=== PATIENT | female | born 1935 | race Caucasian/White ===

== ENCOUNTER 2017-12-22 12:46 | Inpatient (IN) ==
--- NOTE | 2017-12-22 14:16 | ED ---
HPI General Chief Complaint: Psychiatric Symptoms Stated Complaint: Psych Eval Time Seen by Provider: 12/23/17 10:10 History of Present Illness HPI Narrative: The patient was seen and examined in the presence of the nurse. This patient is brought in under police Becerril act. She was acting aggressive and confused. At this time she is calm and cooperative and denies any physical complaint. Denies fever or injury. Severity is mild at this time. No alleviating factors. No exacerbating factors. She denies alcohol or drugs or overdose. Duration 1 day Related Data Home Medications Medication Instructions Recorded Confirmed conjugated estrogens [Premarin] 1.25 mg PO DAILY 12/22/17 12/22/17 diazepam 5 mg PO DAILY 12/22/17 12/22/17 Allergies Allergy/AdvReac Type Severity Reaction Status Date / Time No Known Allergies Allergy Unverified 12/22/17 13:46 Review of Systems ROS: all other systems reviewed are negative [facility] Medical History Medical History H/O: hysterectomy (Acute) High cholesterol (Acute) Hypertension (Acute) Skin cancer (Acute) Surgical History Surgical History H/O breast biopsy (Acute) Social History Social History Substance History: No History of Abuse Second Hand Smoke Exposure: No Smoking Status: Never smoker How Often Do You Have a Drink Containing Alcohol: Monthly or less Recent Travel in [facility] within the Last 8 Weeks: No Recent Out of Country Travel within the Last 8 Weeks: No Immunization History Tetanus Immunization: <5 Years Hx Influenza Vaccine This Season: No Exam Narrative Exam Narrative: GENERAL: Well-nourished, well-developed patient in no apparent distress. SKIN: Focused skin assessment reveals no rash and nodules. Skin is Warm and dry. HEAD: Atraumatic. Normocephalic. EYES: Pupils equal and round. No scleral icterus. No injection or drainage. ENT: No nasal bleeding or discharge. Mucous membranes pink and moist. NECK: Trachea midline. No JVD. No meningeal signs CARDIOVASCULAR: Regular rate and rhythm. No murmur appreciated. RESPIRATORY: No accessory muscle use. Clear to auscultation. Breath sounds equal bilaterally. GASTROINTESTINAL: Abdomen soft, non-tender, nondistended. Hepatic and splenic margins not palpable. MUSCULOSKELETAL: No obvious deformities. No clubbing. No cyanosis. No edema. NEUROLOGICAL: Awake and alert. No obvious cranial nerve deficits. Motor grossly within normal limits. Normal speech. PSYCHIATRIC: Appropriate mood and affect; insight and judgment questionable Course Initial Documented Vital Signs Temperature 98.0 F 12/22/17 13:27 Pulse Rate 126 H 12/22/17 13:27 Respiratory Rate 20 12/22/17 13:27 Blood Pressure 176/97 H 12/22/17 13:27 Pulse Oximetry 93 L 12/22/17 13:27 Last Documented Vital Signs Temperature 97.6 F 12/26/17 05:33 Pulse Rate 78 12/26/17 05:33 Respiratory Rate 16 12/26/17 05:33 Blood Pressure 114/71 12/26/17 05:33 Pulse Oximetry 95 12/26/17 05:33 Medical Decision Making MDM Narrative Medical decision making narrative: Blood and urine studies. Psych screen has been ordered as she is here under Becerril act. Patient has significant tachycardia. EKG shows sinus rhythm at 116. [place] interval is [address] elevations. Patient has no urinary symptoms. She feels perfectly fine on recheck. Her heart rate is 100. She is a bit hypertensive. Has minor renal insufficiency. She is awaiting psychiatric evaluation but no indication for emergent medical care. Medical Screen Exam Complete: Yes Emergency Medical Condition: Yes Differential Diagnosis Differential Diagnosis: Psychiatric disease, electrolyte abnormality, substance- induced mood disorder, dementia Medical Records Medical records reviewed: Yes I reviewed the patient's medical records. Patient was seen in 2012 by oncology Lab Data Lab results reviewed: Yes I reviewed the patient's lab results. Result diagrams: 12/25/17 08:03 12/25/17 08:03 Lab Results 12/22/17 12/22/17 12/22/17 Range/Units 13:15 13:15 14:10 WBC 13.1 H (4.0-11.0) th/mm3 RBC 5.04 (4.00-5.30) mil/mm3 Hgb 14.8 (11.6-15.3) gm/dL Hct 45.1 (35.0-46.0) % MCV 89.5 (80.0-100.0) fL MCH 29.4 (27.0-34.0) pg MCHC 32.9 (32.0-36.0) % RDW 13.8 (11.6-17.2) % Plt Count 265 (150-450) th/mm3 MPV 9.5 (7.0-11.0) fL Neut % (Auto) 73.8 H (16.0-70.0) % Lymph % (Auto) 16.0 (9.0-44.0) % [place] % (Auto) 9.4 H (0.0-8.0) % Eos % (Auto) 0.1 (0.0-4.0) % Baso % (Auto) 0.7 (0.0-2.0) % Neut # (Auto) 9.7 H (1.8-7.7) th/mm3 Lymph # (Auto) 2.1 (1.0-4.8) th/mm3 [place] # (Auto) 1.2 H (0.0-0.9) th/mm3 Eos # (Auto) 0.0 (0.0-0.4) th/mm3 Baso # (Auto) 0.1 (0.0-0.2) th/mm3 WBC Differential . Differential Comment Auto diff final Sodium 144 (136-145) meq/L Potassium 3.5 (3.5-5.1) meq/L Chloride 109 H (98-107) meq/L Carbon Dioxide 23.9 (21.0-32.0) meq/L Anion Gap 11 (5-15) meq/L BUN 15 (7-18) mg/dL Creatinine 1.53 H (0.50-1.00) mg/dL Estimated GFR 32 L (>89) mL/min Random Glucose 148 H (74-106) mg/dL Hemoglobin A1c (4.3-6.0) % Calcium 9.3 (8.5-10.1) mg/dL Total Bilirubin 0.8 (0.2-1.0) mg/dL AST 25 (15-37) U/L ALT 23 (10-53) U/L Alkaline Phosphatase 99 (45-117) U/L Ammonia (11-32) mcmol/L Total Protein 8.6 H (6.4-8.2) g/dL Albumin 4.1 (3.4-5.0) g/dL Triglycerides (42-150) mg/dL Cholesterol (120-200) mg/dL LDL Cholesterol, Calc (0-99) mg/dL HDL Cholesterol (40.0-60.0) mg/dL Cholesterol/HDL Ratio Ratio Vitamin B12 (193-986) pg/mL TSH 2.680 (0.358-3.740) uIU/mL Free T4 (0.76-1.46) ng/dL Urine Color (Yellw/Straw) Urine Clarity (Clear) Urine pH (5.0-8.5) Ur Specific [place] (1.002-1.035) Urine Protein (Neg-Trace) mg/dL Urine Glucose (UA) (Negative) mg/dL Urine Ketones (Negative) mg/dL Urine Occult Blood (Negative) Urine Nitrate (Negative) Urine Bilirubin (Negative) Urine Urobilinogen (Less than 2) mg/dL Ur Leukocyte Esterase (Negative) Urine RBC (0-3) /hpf Urine WBC (0-5) /hpf Ur Squamous Epith Cells (0-5) /hpf Uric Acid Crystals (None) /hpf Urine Bacteria (None) /hpf Urine Mucus (Occasional) /lpf Micro UA Comment Ur Microscopic Review Urine Culture Comments Urine Opiates Screen Neg (Neg) Ur Barbiturates Screen Neg (Neg) Ur Amphetamines Screen Neg (Neg) U Benzodiazepines Scrn Pos H (Neg) Urine Cocaine Screen Neg (Neg) U Cannabinoids Screen Neg (Neg) Serum Alcohol Less than 3 (0-5) mg/dL HIV 1&2 Ab/P24 Ag 4thGn (Nonreactive) 12/23/17 12/24/17 12/24/17 Range/Units 14:47 06:10 06:10 WBC (4.0-11.0) th/mm3 RBC (4.00-5.30) mil/mm3 Hgb (11.6-15.3) gm/dL Hct (35.0-46.0) % MCV (80.0-100.0) fL MCH (27.0-34.0) pg MCHC (32.0-36.0) % RDW (11.6-17.2) % Plt Count (150-450) th/mm3 MPV (7.0-11.0) fL Neut % (Auto) (16.0-70.0) % Lymph % (Auto) (9.0-44.0) % [place] % (Auto) (0.0-8.0) % Eos % (Auto) (0.0-4.0) % Baso % (Auto) (0.0-2.0) % Neut # (Auto) (1.8-7.7) th/mm3 Lymph # (Auto) (1.0-4.8) th/mm3 [place] # (Auto) (0.0-0.9) th/mm3 Eos # (Auto) (0.0-0.4) th/mm3 Baso # (Auto) (0.0-0.2) th/mm3 WBC Differential Differential Comment Sodium 142 (136-145) meq/L Potassium 3.5 (3.5-5.1) meq/L Chloride 108 H (98-107) meq/L Carbon Dioxide 25.3 (21.0-32.0) meq/L Anion Gap 9 (5-15) meq/L BUN 18 (7-18) mg/dL Creatinine 0.78 (0.50-1.00) mg/dL Estimated GFR 71 L (>89) mL/min Random Glucose 113 H (74-106) mg/dL Hemoglobin A1c 6.0 (4.3-6.0) % Calcium 8.6 (8.5-10.1) mg/dL Total Bilirubin (0.2-1.0) mg/dL AST (15-37) U/L ALT (10-53) U/L Alkaline Phosphatase (45-117) U/L Ammonia (11-32) mcmol/L Total Protein (6.4-8.2) g/dL Albumin (3.4-5.0) g/dL Triglycerides 131 (42-150) mg/dL Cholesterol 140 (120-200) mg/dL LDL Cholesterol, Calc 56 (0-99) mg/dL HDL Cholesterol 57.7 (40.0-60.0) mg/dL Cholesterol/HDL Ratio 2.42 Ratio Vitamin B12 194 (193-986) pg/mL TSH 3.450 (0.358-3.740) uIU/mL Free T4 1.15 (0.76-1.46) ng/dL Urine Color Mandy (Yellw/Straw) Urine Clarity Cloudy H (Clear) Urine pH 5.0 (5.0-8.5) Ur Specific [place] 1.025 (1.002-1.035) Urine Protein 30 H (Neg-Trace) mg/dL Urine Glucose (UA) Negative (Negative) mg/dL Urine Ketones Trace H (Negative) mg/dL Urine Occult Blood Small H (Negative) Urine Nitrate Negative (Negative) Urine Bilirubin Negative (Negative) Urine Urobilinogen 2.0 H (Less than 2) mg/dL Ur Leukocyte Esterase Negative (Negative) Urine RBC 2 (0-3) /hpf Urine WBC 2 (0-5) /hpf Ur Squamous Epith Cells 7 (0-5) /hpf Uric Acid Crystals Moderate H (None) /hpf Urine Bacteria Many H (None) /hpf Urine Mucus Many H (Occasional) /lpf Micro UA Comment Culture indicated Ur Microscopic Review Not Reportable Urine Culture Comments Culture indicated Urine Opiates Screen (Neg) Ur Barbiturates Screen (Neg) Ur Amphetamines Screen (Neg) U Benzodiazepines Scrn (Neg) Urine Cocaine Screen (Neg) U Cannabinoids Screen (Neg) Serum Alcohol (0-5) mg/dL HIV 1&2 Ab/P24 Ag 4thGn (Nonreactive) 12/25/17 12/25/17 12/26/17 Range/Units 08:03 08:03 07:50 WBC 7.9 (4.0-11.0) th/mm3 RBC 4.58 (4.00-5.30) mil/mm3 Hgb 13.7 (11.6-15.3) gm/dL Hct 40.7 (35.0-46.0) % MCV 88.8 (80.0-100.0) fL MCH 29.8 (27.0-34.0) pg MCHC 33.5 (32.0-36.0) % RDW 13.4 (11.6-17.2) % Plt Count 200 (150-450) th/mm3 MPV 9.6 (7.0-11.0) fL Neut % (Auto) 47.9 (16.0-70.0) % Lymph % (Auto) 39.9 (9.0-44.0) % [place] % (Auto) 8.2 H (0.0-8.0) % Eos % (Auto) 3.1 (0.0-4.0) % Baso % (Auto) 0.9 (0.0-2.0) % Neut # (Auto) 3.8 (1.8-7.7) th/mm3 Lymph # (Auto) 3.2 (1.0-4.8) th/mm3 [place] # (Auto) 0.6 (0.0-0.9) th/mm3 Eos # (Auto) 0.2 (0.0-0.4) th/mm3 Baso # (Auto) 0.1 (0.0-0.2) th/mm3 WBC Differential . Differential Comment Auto diff final Sodium 141 (136-145) meq/L Potassium 3.7 (3.5-5.1) meq/L Chloride 105 (98-107) meq/L Carbon Dioxide 25.4 (21.0-32.0) meq/L Anion Gap 11 (5-15) meq/L BUN 16 (7-18) mg/dL Creatinine 0.74 (0.50-1.00) mg/dL Estimated GFR 75 L (>89) mL/min Random Glucose 103 (74-106) mg/dL Hemoglobin A1c (4.3-6.0) % Calcium 8.7 (8.5-10.1) mg/dL Total Bilirubin (0.2-1.0) mg/dL AST (15-37) U/L ALT (10-53) U/L Alkaline Phosphatase (45-117) U/L Ammonia 12 (11-32) mcmol/L Total Protein (6.4-8.2) g/dL Albumin (3.4-5.0) g/dL Triglycerides (42-150) mg/dL Cholesterol (120-200) mg/dL LDL Cholesterol, Calc (0-99) mg/dL HDL Cholesterol (40.0-60.0) mg/dL Cholesterol/HDL Ratio Ratio Vitamin B12 (193-986) pg/mL TSH (0.358-3.740) uIU/mL Free T4 (0.76-1.46) ng/dL Urine Color (Yellw/Straw) Urine Clarity (Clear) Urine pH (5.0-8.5) Ur Specific [place] (1.002-1.035) Urine Protein (Neg-Trace) mg/dL Urine Glucose (UA) (Negative) mg/dL Urine Ketones (Negative) mg/dL Urine Occult Blood (Negative) Urine Nitrate (Negative) Urine Bilirubin (Negative) Urine Urobilinogen (Less than 2) mg/dL Ur Leukocyte Esterase (Negative) Urine RBC (0-3) /hpf Urine WBC (0-5) /hpf Ur Squamous Epith Cells (0-5) /hpf Uric Acid Crystals (None) /hpf Urine Bacteria (None) /hpf Urine Mucus (Occasional) /lpf Micro UA Comment Ur Microscopic Review Urine Culture Comments Urine Opiates Screen (Neg) Ur Barbiturates Screen (Neg) Ur Amphetamines Screen (Neg) U Benzodiazepines Scrn (Neg) Urine Cocaine Screen (Neg) U Cannabinoids Screen (Neg) Serum Alcohol (0-5) mg/dL HIV 1&2 Ab/P24 Ag 4thGn (Nonreactive) 12/26/17 Range/Units 07:50 WBC (4.0-11.0) th/mm3 RBC (4.00-5.30) mil/mm3 Hgb (11.6-15.3) gm/dL Hct (35.0-46.0) % MCV (80.0-100.0) fL MCH (27.0-34.0) pg MCHC (32.0-36.0) % RDW (11.6-17.2) % Plt Count (150-450) th/mm3 MPV (7.0-11.0) fL Neut % (Auto) (16.0-70.0) % Lymph % (Auto) (9.0-44.0) % [place] % (Auto) (0.0-8.0) % Eos % (Auto) (0.0-4.0) % Baso % (Auto) (0.0-2.0) % Neut # (Auto) (1.8-7.7) th/mm3 Lymph # (Auto) (1.0-4.8) th/mm3 [place] # (Auto) (0.0-0.9) th/mm3 Eos # (Auto) (0.0-0.4) th/mm3 Baso # (Auto) (0.0-0.2) th/mm3 WBC Differential Differential Comment Sodium (136-145) meq/L Potassium (3.5-5.1) meq/L Chloride (98-107) meq/L Carbon Dioxide (21.0-32.0) meq/L Anion Gap (5-15) meq/L BUN (7-18) mg/dL Creatinine (0.50-1.00) mg/dL Estimated GFR (>89) mL/min Random Glucose (74-106) mg/dL Hemoglobin A1c (4.3-6.0) % Calcium (8.5-10.1) mg/dL Total Bilirubin (0.2-1.0) mg/dL AST (15-37) U/L ALT (10-53) U/L Alkaline Phosphatase (45-117) U/L Ammonia (11-32) mcmol/L Total Protein (6.4-8.2) g/dL Albumin (3.4-5.0) g/dL Triglycerides (42-150) mg/dL Cholesterol (120-200) mg/dL LDL Cholesterol, Calc (0-99) mg/dL HDL Cholesterol (40.0-60.0) mg/dL Cholesterol/HDL Ratio Ratio Vitamin B12 (193-986) pg/mL TSH (0.358-3.740) uIU/mL Free T4 (0.76-1.46) ng/dL Urine Color (Yellw/Straw) Urine Clarity (Clear) Urine pH (5.0-8.5) Ur Specific [place] (1.002-1.035) Urine Protein (Neg-Trace) mg/dL Urine Glucose (UA) (Negative) mg/dL Urine Ketones (Negative) mg/dL Urine Occult Blood (Negative) Urine Nitrate (Negative) Urine Bilirubin (Negative) Urine Urobilinogen (Less than 2) mg/dL Ur Leukocyte Esterase (Negative) Urine RBC (0-3) /hpf Urine WBC (0-5) /hpf Ur Squamous Epith Cells (0-5) /hpf Uric Acid Crystals (None) /hpf Urine Bacteria (None) /hpf Urine Mucus (Occasional) /lpf Micro UA Comment Ur Microscopic Review Urine Culture Comments Urine Opiates Screen (Neg) Ur Barbiturates Screen (Neg) Ur Amphetamines Screen (Neg) U Benzodiazepines Scrn (Neg) Urine Cocaine Screen (Neg) U Cannabinoids Screen (Neg) Serum Alcohol (0-5) mg/dL HIV 1&2 Ab/P24 Ag 4thGn Nonreactive (Nonreactive) Imaging Data Radiologist's impression: Head CT 12/25/17 00:00 CONCLUSION: 1. No acute intracranial abnormalities. . Discharge Plan Discharge Disposition Patient Disposition: 30 Still Patient Discharge Details Diagnosis: Major neurocognitive disorder due to Alzheimer's disease, probable, with behavioral disturbance Physicians Team ED Provider: Simon Murphy Primary Care Provider: Primary Care Monse Haynes Attending Provider: Chaiffetz,Barak B. Other Providers: Utilizer,[facility] ; [place] ; Sebastian Chi Discharge Interventions Interventions: ED Discharge Assessment Last Done: 12/23/17 17:13 Vital Signs Last Done: 12/23/17 06:27 Status ED Status: Left Department Discharge Information Discharge Date/Time: 12/23/17 17:13
[2017-12-22 14:41] LABS: Baso # (Auto) 0.1 th/mm3 (0.0-0.2); Baso % (Auto) 0.7 % (0.0-2.0); Eos % (Auto) 0.1 % (0.0-4.0); Hematocrit 45.1 % (35.0-46.0); Hemoglobin 14.8 gm/dL (11.6-15.3); Lymph # (Auto) 2.1 th/mm3 (1.0-4.8); Mean Corpuscular HGB Conc 32.9 % (32.0-36.0); Mean Corpuscular Hemoglobin 29.4 pg (27.0-34.0); Mean Corpuscular Volume 89.5 fL (80.0-100.0); Mean Platelet Volume 9.5 fL (7.0-11.0); Mono # (Auto) 1.2 th/mm3 (0.0-0.9); Mono % (Auto) 9.4 % (0.0-8.0); Neut # (Auto) 9.7 th/mm3 (1.8-7.7); Neut % (Auto) 73.8 % (16.0-70.0); Platelet Count 265 th/mm3 (150-450); Red Blood Count 5.04 mil/mm3 (4.00-5.30); Red Cell Distribution Width 13.8 % (11.6-17.2); White Blood Count 13.1 th/mm3 (4.0-11.0)
[2017-12-22 15:02] LABS: Albumin 4.1 g/dL (3.4-5.0); Anion Gap 11 meq/L (5-15); Aspartate Aminotransferase 25 U/L (15-37); Blood Urea Nitrogen 15 mg/dL (7-18); Calcium 9.3 mg/dL (8.5-10.1); Carbon Dioxide 23.9 meq/L (21.0-32.0); Chloride 109 meq/L (98-107); Glomerular Filtration Rate 32 mL/min (>89); Glucose,Random 148 mg/dL (74-106); Potassium 3.5 meq/L (3.5-5.1); Sodium 144 meq/L (136-145)
[2017-12-22 15:12] LABS: Alanine Aminotransferase 23 U/L (10-53); Alkaline Phosphatase 99 U/L (45-117); Total Protein 8.6 g/dL (6.4-8.2)
[2017-12-22 15:31] LABS: Amphetamine Screen,Urine Neg (Neg); Barbiturate Screen,Urine Neg (Neg); Cannabinoid Screen,Urine Neg (Neg); Cocaine Screen,Urine Neg (Neg)
[2017-12-22 15:44] LABS: Opiate Screen,Urine Neg (Neg)
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
[2017-12-23 16:13] LABS: Bacteria,Urine Many /hpf; Bilirubin,Urine Negative (Negative); Clarity,Urine Cloudy (Clear); Color,Urine Amber (Yellw/Straw); Glucose,Urine (UA) Negative (Negative); Leukocyte Esterase,Urine Negative (Negative); Mucus,Urine Many /lpf (Occasional); Nitrite,Urine Negative (Negative); Specific Gravity,Urine 1.025 (1.002-1.035); Squamous Epithelial Cell,Urine 7 /hpf (0-5); Uric Acid Crystals,Urine Moderate /hpf
--- NOTE | 2017-12-23 21:48 | ECG ---
Date Performed: 12/22/2017 Time Performed: 14:18:46 PTAGE: 82 years EKG: SINUS TACHYCARDIA POSSIBLE ANTERIOR MYOCARDIAL INFARCTION ABNORMAL ECG NO PREVIOUS TRACING DOCTOR: Chris Darden Interpretating Date/Time 12/23/2017 21:47:56
[2017-12-23] MEDS: Senna/Docusate Sodium 8.6/50 MG Tablet PO SCH (22:21)
[2017-12-24 06:52] LABS: Calcium 8.6 mg/dL (8.5-10.1); Carbon Dioxide 25.3 meq/L (21.0-32.0); Potassium 3.5 meq/L (3.5-5.1)
[2017-12-24 07:18] LABS: Chol/HDL Ratio 2.42 Ratio; Free T4 (Free Thyroxine) 1.15 ng/dL (0.76-1.46); HDL Cholesterol 57.7 mg/dL (40.0-60.0); Thyroid Stimulating Hormone 3.45 uIU/mL (0.358-3.740)
[2017-12-24] MEDS ORDERED: diazePAM 5 MG Tablet PO SCH (09:00)
[2017-12-24] MEDS: ESTROGENS CONJUGATED 1.25 MG PO SCH (10:00)
[2017-12-24] MEDS: Senna/Docusate Sodium 8.6/50 MG Tablet PO SCH ×2 (10:00→21:53)
--- NOTE | 2017-12-24 11:52 | P.HPPSY ---
Provisional Diagnosis Admission Date: December 23, 2017 14:08 [place] [facility].: 1. 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 Express and informed consent means consent voluntarily given in writing, by a competent person, after sufficient explanation and disclosure of the subject matter involved to enable the person to make a knowing and willful decision without any element of force, fraud, deceit, duress, or other form of constraint or coercion. This person is 18 years of age or older, is not now known to be incompetent to consent to treatment with a guardian advocate, and does not have a health care surrogate or proxy currently making medical treatment decisions. I have found this person to be one of the following: [] Competent to provide express and informed consent, as defined above, for voluntary admission to this facility and is competent to provide express and informed consent for treatment. He/she has the consistent capacity to make well reasoned, willful, and knowing decisions concerning his or her medical or mental health treatment. The person fully and consistently understands the purpose of the admission for examination/placement and is fully capable of personally exercising all rights assured [place] [X] Incompetent to provide express and informed consent to voluntary admission, and this is incompetent to provide express and informed consent to treatment. The person must be transferred to involuntary status and a petition for a guardian advocate filed with the Circuit Court. [] Refusing to provide express and informed consent to voluntary admission but is competent to provide express and informed consent for treatment. The person must be discharged or transferred to involuntary status. Form shall be completed within 24 hours of a person's arrival at the receiving facility and filed in the clinical record of each person: 1. Admitted on a voluntary basis 2. Permitted to provide express and informed consent to his/her own treatment 3. Allowed to transfer from involuntary to voluntary status 4. Prior to permitting a person to consent to his or her own treatment after having been previously found incompetent to consent to treatment. History of Present Illness Capacity: Lacks capacity Chief Complaint: Becerril act History of Present Illness: Ms. Gresham is an 82-year-old female with no reported past psychiatric history besides a childhood history of dyslexia who presents under a Becerril act by law enforcement alleging that the patient believed that she had won the [employer] prize and was given a house in [place]. She was apparently trying to get into someone else's house. Patient was evaluated by the psychiatric nurse practitioner in the emergency department who obtained collateral information from the patient's son indicating that the patient had a previous episode of psychiatric disturbance several years ago. Reviewing our electronic medical record, I see no previous psychiatric contact within our system. Patient seen and examined with nurse. Chart reviewed. Case discussed with nursing staff. On my examination today, the patient is calm and cooperative. She is superficially clear thinking but presents with a loculated grandiosity. When I ask her about previous presidents as part of mental status testing she tells me offhandedly that she has spoken with both Jake and Shannan Ortega in the past. She also tells me that she won the [employer]inder peace prize for pioneering a new approach to pancreatic surgery. She says that she won this four years ago. She blandly denies the allegations in the Becerril act. She is fairly discursive and verbose, but her speech is not rapid or pressured. No reported sleep disturbance although her appetite is reportedly somewhat poor. She denies any subjective mood disturbance. She denies any suicidal or homicidal ideation. Besides the grandiose delusions, I can elicit no other delusional material. The remainder of the psychiatric ROS is negative. No acute physical complaints. Past psychiatric history: The patient reports a childhood history of dyslexia. She is not presently under the care of a psychiatrist. She denies a history of psychiatric admissions. She denies a history of suicide attempts. Some of this material is contravened by collateral information from patient's son obtained by the nurse practitioner. Family history: The patient denies a family history of mental illness or suicide. Chemical dependency history: The patient denies any abuse of drugs or alcohol. Social history: The patient reports that she lives alone. She is . She reportedly has 2 sons in [place]. Chart also indicates that the patient has a daughter. She is high school educated. She reports that she previously worked for [employer] doing [email or web address] operation. She also cleaned homes for 22 years. She denies any history. She does note that her former was in the . She denies any legal history. Denies any access to guns or firearms. She is a Roman Catholic. She denies any history of trauma. Mental status testing: Registration is 3 out of 3 and recall is 2 out of 3 at 5 minutes. She is oriented to person, place and date. She is able to spelled world forwards and gives it backwards as DLORW. She is able to name 2 items and repeat a phrase. Past medical history: Patient reports a history of hypertension. Medications: Patient reports that she had been taking atenolol at home but blood pressures have been normal lately off of this medication. Allergies: No known allergies. I did endeavor to obtain collateral information from the patient's son and daughter at the numbers in the medical record and left generic voicemails on both requesting a call back. - Inpatient Certification I certify that the inpatient services were ordered in accordance with Medicare regulations governing the order. This includes certification that hospital inpatient services are reasonable and necessary and in the case of services not specified as inpatient-only under 42 CFR 419.22(n), that they are appropriately provided as inpatient services in accordance to with the 2-midnight benchmark under 43 CFR 412.3(e) I certify that inpatient psychiatric hospital services are medically necessary. Evaluation and treatment and/or diagnostic testing are expected to improve the patient's condition. The patient needs on a daily basis, active treatment furnished directly by or requiring the supervision of inpatient psychiatric facility personnel. Estimated Total Length of Stay (Days): 7 (5-7) Plans for Post Hospital Care: Not yet determined Review of Systems All other systems reviewed negative except as stated in HPI [facility] - History History Provided By: Patient - Medical History Medical History: Medical History (Last Updated 12/22/17 @ 13:36 by Dm Whittaker RN) H/O: hysterectomy High cholesterol Hypertension Skin cancer - Surgical History Surgical History: Surgical History (Last Updated 12/22/17 @ 13:36 by Dm Whittaker RN) H/O breast biopsy - Tobacco History Second Hand Smoke Exposure: No Smoking Status: Never smoker - Alcohol History How Often Do You Have a Drink Containing Alcohol: 2 to 4 times a month - Substance Use History Substance History: No History of Abuse - Travel History Recent Travel in the [place] Within the Last 8 Weeks: No Recent Travel Out of the Country Within the Last 8 Weeks: No - Immunization History Tetanus Immunization: <5 Years Hx Influenza Vaccine This Season: No Quality Measures - Patient Strengths Patient's strengths (minimum of 2): In a monitored setting. Verbally fluent. Medications and Allergies Active Medications: Active Medications Al Hydrox/Mg Hydrox/Simethicone (Mag-Al Plus Susp Liq) 30 ml PO Q6H PRN PRN Reason: DYSPEPSIA Al Hydroxide/Mg Hydroxide (Milk Of Magnesia Liq) 30 ml PO Q12H PRN PRN Reason: Mild Constipation Diazepam (Valium) 5 mg PO DAILY [facility] Last Admin: 12/24/17 10:00 Dose: 5 mg Estrogens Conjugated (Premarin) 1.25 mg PO DAILY [facility] Last Admin: 12/24/17 10:00 Dose: 1.25 mg Senna/Docusate Sodium (Esha-Colace) 1 tab PO BID [facility] Last Admin: 12/24/17 10:00 Dose: 1 tab Allergies Allergy/AdvReac Type Severity Reaction Status Date / Time No Known Allergies Allergy Unverified 12/22/17 13:46 Home Medications Medication Instructions Recorded Confirmed Type conjugated estrogens [Premarin] 1.25 mg PO DAILY 12/22/17 12/22/17 History diazepam 5 mg PO DAILY 12/22/17 12/22/17 History Results - Labs CBC & Chem 7: 12/22/17 13:15 12/24/17 06:10 Labs: Laboratory Results - last 24 hr 12/23/17 12/24/17 14:47 06:10 Sodium 142 Potassium 3.5 Chloride 108 H Carbon Dioxide 25.3 Anion Gap 9 BUN 18 Creatinine 0.78 Estimated GFR 71 L Random Glucose 113 H Calcium 8.6 Triglycerides 131 Cholesterol 140 LDL Cholesterol, Calc 56 HDL Cholesterol 57.7 Cholesterol/HDL Ratio 2.42 Vitamin B12 194 TSH 3.450 Free T4 1.15 Urine Color Mandy Urine Clarity Cloudy H Urine pH 5.0 Ur Specific [place] 1.025 Urine Protein 30 H Urine Glucose (UA) Negative Urine Ketones Trace H Urine Occult Blood Small H Urine Nitrate Negative Urine Bilirubin Negative Urine Urobilinogen 2.0 H Ur Leukocyte Esterase Negative Urine RBC 2 Urine WBC 2 Ur Squamous Epith Cells 7 Uric Acid Crystals Moderate H Urine Bacteria Many H Urine Mucus Many H Micro UA Comment Culture indicated Ur Microscopic Review Not Reportable Urine Culture Comments Culture indicated Labs reviewed. Urinalysis reveals many bacteria but no pyuria, leukocyte esterase or nitrates. Urine culture is pending. Besides decreased GFR, laboratories otherwise unrevealing. Exam Vital signs: Vital Signs 12/23/17 14:15 12/23/17 17:49 12/24/17 06:23 Temperature 98.2 F 98.5 F Pulse Rate 91 H 100 H 82 Respiratory Rate 18 18 18 Blood Pressure 125/79 152/79 H 119/59 L Pulse Oximetry 95 94 L 96 Intake & Output 12/23/17 12/24/17 12/24/17 18:59 06:59 18:59 Intake Total 240 / 240 Output Total 150 / 150 Balance -150 / -150 240 / 240 Intake: Oral 240 / 240 Output: Urine 150 / 150 Narrative: Physical examination completed by ED provider. On my examination today, the patient appears to be in no acute physical distress. No motor abnormalities noted. Labs and vital signs reviewed. Mental Status Examination Appearance: Appropriate Consciousness: Alert Orientation: Person, Place, Date/Time, Situation Motor Activity: Other (No motor abnormalities noted) Speech: Unremarkable Language: Adequate Fund of Knowledge: Adequate Attention and Concentration: Adequate Memory: Unremarkable Mood: Appropriate Affect: Appropriate Thought Process & Associations: Circumstantial Thought Content: Delusional Hallucination Type: None Delusion Type: Other (Grandiose) Suicidal Ideation: No Suicidal Plan: No Suicidal Intention: No Homicidal Ideation: No Homicidal Plan: No Homicidal Intention: No Insight: Poor Judgment: Poor Assessment and Plan - Assessment (1) Delusional disorder, 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 On my examination today, the patient describes some fairly loculated grandiose delusions. There is no evidence of stephanie on my exam, nor is there evidence of more general psychotic disorder like schizophrenia. Patient's mental status testing on bedside screening is fairly good, although she may have some more subtle memory deficits. My suspicion is that the patient has a delusional disorder of the grandiose type. Inasmuch as this allegedly has caused her to drive across the country and try to get into someone else's house, I do think it is prudent to admit the patient for observation and stabilization. Admit inpatient. Involuntary status. I have completed first opinion. Consult for second opinion. Request healthcare surrogate and guardian advocate. Psychotropic medications are on hold until healthcare surrogate can be identified. Patient may benefit from antipsychotic therapy. It appears the patient may have been receiving some Valium at home, and so I will hold the Valium and start a CIWA scale with Ativan for the management of any withdrawal. I will request a neuropsychology consultation to assess for more subtle neurocognitive disorder. Occupational therapy evaluation for ADLs. Repeat CBC to follow up leukocytosis and also follow-up urine culture. Vitals every shift. Counselor to see. Collateral information. Disposition planning. Estimated length of stay: 5-7 days. Justification for Continued Inpatient Stay: See above Discharge Planning: Pending psychiatric stabilization Request Healthcare Surrogate/Guardian Advocate?: Yes
[2017-12-24] MEDS ORDERED: LORazepam 1 MG Tablet PO PRN (14:15)
[2017-12-25] MEDS: ESTROGENS CONJUGATED 1.25 MG PO SCH (09:03)
[2017-12-25] MEDS: Senna/Docusate Sodium 8.6/50 MG Tablet PO SCH ×2 (09:03→21:19)
[2017-12-25] MEDS: Folic Acid 1 MG Tablet PO SCH (09:04)
[2017-12-25] MEDS: Multivitamin/Minerals Therapeutic Tablet PO SCH (09:04)
[2017-12-25 09:08] LABS: Baso # (Auto) 0.1 th/mm3 (0.0-0.2); Baso % (Auto) 0.9 % (0.0-2.0); Eos # (Auto) 0.2 th/mm3 (0.0-0.4); Eos % (Auto) 3.1 % (0.0-4.0); Hematocrit 40.7 % (35.0-46.0); Hemoglobin 13.7 gm/dL (11.6-15.3); Lymph # (Auto) 3.2 th/mm3 (1.0-4.8); Lymph % (Auto) 39.9 % (9.0-44.0); Mean Corpuscular HGB Conc 33.5 % (32.0-36.0); Mean Corpuscular Hemoglobin 29.8 pg (27.0-34.0); Mean Corpuscular Volume 88.8 fL (80.0-100.0); Mean Platelet Volume 9.6 fL (7.0-11.0); Mono # (Auto) 0.6 th/mm3 (0.0-0.9); Mono % (Auto) 8.2 % (0.0-8.0); Neut # (Auto) 3.8 th/mm3 (1.8-7.7); Neut % (Auto) 47.9 % (16.0-70.0); Platelet Count 200 th/mm3 (150-450); Red Blood Count 4.58 mil/mm3 (4.00-5.30); Red Cell Distribution Width 13.4 % (11.6-17.2); White Blood Count 7.9 th/mm3 (4.0-11.0)
[2017-12-25 09:23] LABS: Calcium 8.7 mg/dL (8.5-10.1); Carbon Dioxide 25.4 meq/L (21.0-32.0); Potassium 3.7 meq/L (3.5-5.1)
--- NOTE | 2017-12-25 12:36 | P.PNPSY ---
Subjective Chief Complaint: Becerril act Remarks: Patient seen and examined with nurse. Chart reviewed. Case discussed with nursing staff. Patient remains grandiose per nursing staff. Case discussed in treatment team. On my examination today, the patient presents as decidedly more dysphoric. She continues to describe loculated delusions that she is the recipient of the Surinder prize. She is accusatory and insinuates that we are simply keeping her in the hospital for her insurance money. She does not like speaking to multiple providers and has already been evaluated by Dr. Nixon from neuropsychology. No physical complaints. I once again endeavored to reach both patient's son and daughter without success. I left generic VMs with both. Vital Signs Temp Pulse Resp BP Pulse Ox 12/25/17 06:14 97.4 F L 89 16 118/56 L 97 Laboratory Results - last 24 hr 12/24/17 12/25/17 12/25/17 06:10 08:03 08:03 WBC 7.9 RBC 4.58 Hgb 13.7 Hct 40.7 MCV 88.8 MCH 29.8 MCHC 33.5 RDW 13.4 Plt Count 200 MPV 9.6 Neut % (Auto) 47.9 Lymph % (Auto) 39.9 [place] % (Auto) 8.2 H Eos % (Auto) 3.1 Baso % (Auto) 0.9 Neut # (Auto) 3.8 Lymph # (Auto) 3.2 [place] # (Auto) 0.6 Eos # (Auto) 0.2 Baso # (Auto) 0.1 WBC Differential . Differential Comment Auto diff final Sodium 141 Potassium 3.7 Chloride 105 Carbon Dioxide 25.4 Anion Gap 11 BUN 16 Creatinine 0.74 Estimated GFR 75 L Random Glucose 103 Hemoglobin A1c 6.0 Calcium 8.7 Labs reviewed Review of Systems All other systems reviewed negative except as stated in HPI (Limitation: Psychosis) Mental Status Examination Appearance: Appropriate Consciousness: Alert Orientation: Person, Place, Date/Time Motor Activity: Other (No abnormal motor movements noted) Speech: Unremarkable Language: Adequate Fund of Knowledge: Adequate Attention and Concentration: Adequate Memory: Unremarkable Mood: Appropriate Affect: Appropriate Thought Process & Associations: Circumstantial Thought Content: Delusional Hallucination Type: None Delusion Type: Other (Grandiose) Suicidal Ideation: No Suicidal Plan: No Suicidal Intention: No Homicidal Ideation: No Homicidal Plan: No Homicidal Intention: No Insight: Poor Judgment: Poor Assessment and Plan - Assessment (1) Delusional disorder, 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 The patient would likely benefit from an antipsychotic if consent can be obtained. Neuropsychology evaluation noted and appreciated. Neuropsychologist suspects dementing illness underlying delusional disorder, and I have adjusted the diagnostic schema accordingly. I will initiate dementia workup including head CT and laboratories as it is not clear that this has previously been done. Continue to monitor on the inpatient unit. Continue other medication and care as ordered. Justification for Continued Inpatient Stay: Impairment in self-care. Impairment in reality construction. High risk for decompensation in less restrictive environment. Discharge Planning: Pending psychiatric stabilization. Request Healthcare Surrogate/Guardian Advocate?: Yes
--- NOTE | 2017-12-25 15:10 | P.NPEVAL ---
Disclaimer Patient was given an explanation of the nature and purpose of the evaluation. Patient agreed to proceed with the evaluation and treatment plan. History - Reason for Referral The patient is a 82 year old right handed female who was admitted to the psychiatry unit of [facility] on 12/24/2017 under Becerril Act who reportedly became acutely psychotic, believing that she won the [employer] prize for her work in pancreatic cancer and that she was given a house by her son, and she came into contact with law enforcement when she was attempting to enter someone' s house. She has essentially no past medical history. She is referred for baseline neuropsychological evaluation to assess cognitive, behavioral and emotional aspects of the injury and to provide treatment recommendations. - Additional Psychosocial History Smoking Status: Never smoker Marital status: PMFSH - History History Provided By: Patient - Medical History Medical History: Medical History (Last Updated 12/22/17 @ 13:36 by Dm Whittaker RN) H/O: hysterectomy High cholesterol Hypertension Skin cancer - Surgical History Surgical History: Surgical History (Last Updated 12/22/17 @ 13:36 by Dm Whittaker RN) H/O breast biopsy - Tobacco History Second Hand Smoke Exposure: No Smoking Status: Never smoker - Alcohol History How Often Do You Have a Drink Containing Alcohol: 2 to 4 times a month - Substance Use History Substance History: No History of Abuse - Travel History Recent Travel in the [place] Within the Last 8 Weeks: No Recent Travel Out of the Country Within the Last 8 Weeks: No - Immunization History Tetanus Immunization: <5 Years Hx Influenza Vaccine This Season: No Medications Active Medications Al Hydrox/Mg Hydrox/Simethicone (Mag-Al Plus Susp Liq) 30 ml PO Q6H PRN PRN Reason: DYSPEPSIA Al Hydroxide/Mg Hydroxide (Milk Of Magnesia Liq) 30 ml PO Q12H PRN PRN Reason: Mild Constipation Estrogens Conjugated (Premarin) 1.25 mg PO DAILY [facility] Last Admin: 12/25/17 09:03 Dose: 1.25 mg Flumazenil (Romazecon Inj) 0.2 mg IV.PUSH Q1M PRN PRN Reason: OVERSEDATION Folic Acid (Folic Acid) 1 mg PO DAILY [facility] Stop: 12/30/17 08:59 Last Admin: 12/25/17 09:04 Dose: 1 mg Lorazepam (Ativan) 1 mg PO Q4H PRN PRN Reason: for CIWA 8-10 Lorazepam (Ativan) 2 mg PO Q2H PRN PRN Reason: for CIWA 11-14 Lorazepam (Ativan Inj) 2 mg IV.PUSH Q2H PRN PRN Reason: for CIWA 11-14 Lorazepam (Ativan Inj) 2 mg IV.PUSH Q1H PRN PRN Reason: for CIWA 15-20 Lorazepam (Ativan Inj) 2 mg IV.PUSH Q15M PRN PRN Reason: for CIWA > 20 Lorazepam (Ativan Inj) 1 mg IV.PUSH Q4H PRN PRN Reason: for CIWA 8-10 Multivitamins/Minerals (Theragran-M) 1 tab PO DAILY [facility] Stop: 12/30/17 08:59 Last Admin: 12/25/17 09:04 Dose: 1 tab Senna/Docusate Sodium (Esha-Colace) 1 tab PO BID [facility] Last Admin: 12/25/17 09:03 Dose: 1 tab Thiamine HCl (Vitamin B1) 100 mg PO DAILY [facility] Last Admin: 12/25/17 09:04 Dose: 100 mg Mental Status Assessment - Mental Status Orientation: oriented to: Self, Place, Time, disoriented to: Situation Mental Status: WFL: Language/interactions, Impaired: Thought processing, Attention, Learning/memory, Problem-solving, Visuospatial/construction Present: Delusions Adjustment/Coping Assessment - Adjustment/Coping Adjustment/Coping: Severe: Awareness, Insight - Observation In terms of emotional functioning, the patient demonstrated challenges. This patient demonstrated no signs of agitation, impulsivity or disinhibition, but there was remarkable evidence of a formal thought disorder or psychosis. As noted above, the patient reported fixed delusional ideation that she was the winner of a [employer] prize and that she won a home. There was no evidence of depression or anxiety. The Geriatric Depression Scale-Short Form was administered given the ease to which it is administered to persons with known neurological pathology, and the patient endorsed 3 of 15 symptoms, which falls within the non depressed range. However, her self-report was not internally consistent, Thought content was free from suicidal or homicidal ideation, questionably positive for paranoid ideation, and thought processes were circumstantial and bradyphrenic. The patients mood was euthymic, and her affect was stable and appropriate. The patient appears to possess no insight and awareness into her situation and within the limits of this brief evaluation , poor judgment. - Goals/Team Members LTG Status: Deferred STG Status: Deferred Team Members: Neuropsychologist Effort Effort: Average Cognition Assessment - Attention/Processing Speed Rating: Variable: Language, Impaired: Attention/processing, Immediate & delayed memory, Visual perception, Spatial judgment, Executive, Awareness - insight adjustment Observation: The patient was alert and oriented to person, place, time and circumstances surrounding the recent hospitalization. The Mini-Mental State Exam was administered, and the patient obtained a score of 22 out of 30 points, which falls in the borderline range. However, on further evaluation, specific deficits were identified. In terms of attention skills, the patient exhibited challenges. The patient was able to remain on task and remember basic but not complex verbal instructions. The patient was unable to spell the word WORLD backwards (her response was LDROD). She was unable to complete simple mathematical word problems. In terms of memory functioning, the patient exhibited challenges. The patients initial registration of verbal information was normal, but the patient was unable to improve their memory with repetition. After a period of delay, the patient was unable to recall this information from memory. More specifically, on the Luria Memory Words Test- Short Form, the patients trial one performance was 4 of 7 words, trial five performance was 6 of 7 words, the patients Total Learning score was 24 (at cut- off), and the patients Delayed recall score was 0 of 7 words (well below cut- off). The patients ability to recall verbal information in a paragraph format was considered impaired, as she was unable to recall any of this basic paragraph after a short delay. In terms of speech and language skills, the patient demonstrated challenges. The patients initiated spontaneous conversation throughout the assessment. Speech was characterized by adequate prosody, grammar, articulation, volume and rate. No remarkable dysnomic or paraphasic errors were noted either during conversational speech or on confrontation naming tasks. Reading recognition skills were poor, consistent with her history of dyslexia, and writing skills were intact. The patients comprehension for basic one- and two-stage commands were attenuated by her neuropsychiatric condition. In terms of problem-solving skills, the patient exhibited challenges. The patients ability to understand abstraction reasoning was abnormal as she was unable to abstract essential shared characteristics of objects and concepts. As noted above, mathematical reasoning skills were also abnormal. Speed of information processing, as evaluated by both the Letter and Category Fluency Tests was abnormal. In terms of visuospatial/constructional abilities, the patient's graphomotor productions of simple line drawings was considerably impaired, consistent with constructional apraxia. She did not demonstrate visual suppressions on bilateral simultaneous stimulation of the visual modality, which suggests that this problem is more related to a degenerative condition, not a cerebrovascular condition of the right hemisphere. Finally, there was no evidence of ideomotor apraxia during this brief evaluation. Summary/Diagnosis - Summary/Impressions Summary: The overall constellation of neuropsychological findings in combination with her medical history are clearly inconsistent with the normal aging process or the singular effects of her psychiatric condition. The patient demonstrates a dense memory consolidation disorder, executive functioning deficits that include impaired abstraction, calculation and processing speed, and she demonstrated constructional apraxia. Emotionally, she demonstrated an absence of insight, awareness and judgment, and she exhibited a fixed delusional perception, described above. Taken together, there appears to be sufficient neuropsychological evidence to conclude that there is an underlying major neurocognitive disorder, probably Alzheimer's disease, with this superimposed delusional disorder. Recommendations Recommendations: From a neuropsychological perspective, this patient lacks decision making capacity. She demonstrates impaired ability to appreciate a situation and its likely consequences, and she demonstrates the impaired ability to manipulate information rationally. 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 She will need a guardian. Continued psychiatric evaluation and treatment of her superimposed delusional disorder is recommended, and she requires continued structured treatment setting to prevent her from decompensating further. Following medical stabilization, she will need placement in a facility with significant structure as she lacks the cognitive ability to manage in an independent setting. Neuroimaging may be helpful to further elucidate a diagnosis. I would anticipate global atrophy with hippocampal sclerosis.
--- NOTE | 2017-12-25 15:12 | P.CONPSY ---
Provisional Diagnosis Admission Date: December 23, 2017 14:08 Surprise I.: 1. 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 Gresham is an 82-year-old female with no reported past psychiatric history besides a childhood history of dyslexia who presents under a Becerril act by law enforcement alleging that the patient believed that she had won the [employer] prize and was given a house in [place]. She was apparently trying to get into someone else's house. Patient was evaluated by the psychiatric nurse practitioner in the emergency department who obtained collateral information from the patient's son indicating that the patient had a previous episode of psychiatric disturbance several years ago. Reviewing our electronic medical record, I see no previous psychiatric contact within our system.Patient seen and examined with nurse. Chart reviewed. Case discussed with nursing staff. On my examination today, the patient is calm and cooperative. She is superficially clear thinking but presents with a loculated grandiosity. When I ask her about previous presidents as part of mental status testing she tells me offhandedly that she has spoken with both Jake and Shannan Ortega in the past. She also tells me that she won the [employer] peace prize for pioneering a new approach to pancreatic surgery. She says that she won this four years ago. She blandly denies the allegations in the Becerril act. She is fairly discursive and verbose, but her speech is not rapid or pressured. No reported sleep disturbance although her appetite is reportedly somewhat poor. She denies any subjective mood disturbance. She denies any suicidal or homicidal ideation. Besides the grandiose delusions, I can elicit no other delusional material. The remainder of the psychiatric ROS is negative. No acute physical complaints. he patient is an 82-year-old woman, , domiciled alone, with psychiatric history of of bipolar disorder, unknown for the service, no previous psychiatric hospitalizations, no previous suicide attempts, medical history hypertension, who was admitted under a Becerril act initiated by law enforcement. The report alleges that the patient was found in a person's driveway and was insisting that that was her house, and later she became agitated and was acting confused was brought to the ER. Consulted to me for second opinion. She is talkative, circumstantial, with grandeur delusions present she says that she knows the president of [employer], has won a [employer] prize, reports feeling okay, reports good mood. Denies anhedonia, denies hopelessness, denies helplessness. A little bit disorganized at times, she says that she does not really know what she is here, that discomfort that she is in this hospital. She wants to go home. Denies suicidal and homicidal ideation, denies visual and auditory hallucinations PMFSH - History History Provided By: Patient - Medical History Medical History: Medical History (Last Updated 12/22/17 @ 13:36 by Dm Whittaker RN) H/O: hysterectomy High cholesterol Hypertension Skin cancer - Surgical History Surgical History: Surgical History (Last Updated 12/22/17 @ 13:36 by Dm Whittaker RN) H/O breast biopsy - Tobacco History Second Hand Smoke Exposure: No Smoking Status: Never smoker - Alcohol History How Often Do You Have a Drink Containing Alcohol: 2 to 4 times a month - Substance Use History Substance History: No History of Abuse - Travel History Recent Travel in the [place] Within the Last 8 Weeks: No Recent Travel Out of the Country Within the Last 8 Weeks: No - Immunization History Tetanus Immunization: <5 Years Hx Influenza Vaccine This Season: No Medications and Allergies Active Medications: Active Medications Al Hydrox/Mg Hydrox/Simethicone (Mag-Al Plus Susp Liq) 30 ml PO Q6H PRN PRN Reason: DYSPEPSIA Al Hydroxide/Mg Hydroxide (Milk Of Magnesia Liq) 30 ml PO Q12H PRN PRN Reason: Mild Constipation Estrogens Conjugated (Premarin) 1.25 mg PO DAILY [facility] Last Admin: 12/25/17 09:03 Dose: 1.25 mg Flumazenil (Romazecon Inj) 0.2 mg IV.PUSH Q1M PRN PRN Reason: OVERSEDATION Folic Acid (Folic Acid) 1 mg PO DAILY [facility] Stop: 12/30/17 08:59 Last Admin: 12/25/17 09:04 Dose: 1 mg Lorazepam (Ativan) 1 mg PO Q4H PRN PRN Reason: for CIWA 8-10 Lorazepam (Ativan) 2 mg PO Q2H PRN PRN Reason: for CIWA 11-14 Lorazepam (Ativan Inj) 2 mg IV.PUSH Q2H PRN PRN Reason: for CIWA 11-14 Lorazepam (Ativan Inj) 2 mg IV.PUSH Q1H PRN PRN Reason: for CIWA 15-20 Lorazepam (Ativan Inj) 2 mg IV.PUSH Q15M PRN PRN Reason: for CIWA > 20 Lorazepam (Ativan Inj) 1 mg IV.PUSH Q4H PRN PRN Reason: for CIWA 8-10 Multivitamins/Minerals (Theragran-M) 1 tab PO DAILY [facility] Stop: 12/30/17 08:59 Last Admin: 12/25/17 09:04 Dose: 1 tab Senna/Docusate Sodium (Esha-Colace) 1 tab PO BID [facility] Last Admin: 12/25/17 09:03 Dose: 1 tab Thiamine HCl (Vitamin B1) 100 mg PO DAILY [facility] Last Admin: 12/25/17 09:04 Dose: 100 mg Allergies Allergy/AdvReac Type Severity Reaction Status Date / Time No Known Allergies Allergy Unverified 12/22/17 13:46 Home Medications Medication Instructions Recorded Confirmed Type conjugated estrogens [Premarin] 1.25 mg PO DAILY 12/22/17 12/22/17 History diazepam 5 mg PO DAILY 12/22/17 12/22/17 History Exam Vital signs: Vital Signs 12/24/17 16:00 12/25/17 06:14 Temperature 98.6 F 97.4 F L Pulse Rate 105 H 89 Respiratory Rate 18 16 Blood Pressure 121/75 118/56 L Pulse Oximetry 95 97 Intake & Output 12/24/17 12/25/17 12/25/17 18:59 06:59 18:59 Intake Total 960 / 960 Balance 960 / 960 Intake: Oral 960 / 960 Mental Status Examination Appearance: Appropriate Consciousness: Alert Orientation: Person, Place, Date/Time, Situation Motor Activity: Other (No motor abnormalities noted) Speech: Unremarkable Language: Adequate Fund of Knowledge: Adequate Attention and Concentration: Adequate Memory: Unremarkable Mood: Appropriate Affect: Appropriate Thought Process & Associations: Circumstantial Thought Content: Delusional Hallucination Type: None Delusion Type: Other (Grandiose) Suicidal Ideation: No Suicidal Plan: No Suicidal Intention: No Homicidal Ideation: No Homicidal Plan: No Homicidal Intention: No Insight: Poor Judgment: Poor Assessment and Plan - Assessment (1) Delusional disorder, 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 Documentation was reviewed. I know the patient from previous encounter in the ER. I agree and concur with Dr. Lambert plan and assessment. Justification for Continued Inpatient Stay: Continue admission Request Healthcare Surrogate/Guardian Advocate?: Yes
--- NOTE | 2017-12-25 21:58 | CT ---
EXAM DATE: 12/25/2017 9:56 PM EDT AGE/SEX: 82 years / Female INDICATIONS: Altered mental status. CLINICAL DATA: This is the patient's initial encounter. Patient reports that signs and symptoms have been present for 1 day and indicates a pain score of 0/10. MEDICAL/SURGICAL HISTORY: Hypertension. Hysterectomy. RADIATION DOSE: 32.25 CTDI (mGy) COMPARISON: No prior exams available for comparison. TECHNIQUE: CT of the head without contrast. Using automated exposure control and adjustment of the mA and/or kV according to patient size, radiation dose was kept as low as reasonably achievable to ob tain optimal diagnostic quality images. DICOM format image data is available electronically for revi ew and comparison. FINDINGS: Cerebrum: The ventricles are normal for age. No evidence of midline shift, mass lesion, hemorrhage or acute infarction. No extraaxial fluid collections are seen. Posterior Fossa: The cerebellum and brainstem are intact. The 4th ventricle is midline. The cerebe llopontine angle is unremarkable. Extracranial: The visualized portion of the orbits is intact. Skull: The calvaria is intact. No evidence of skull fracture. CONCLUSION: 1. No acute intracranial abnormalities. . Electronically signed by: Clay Medina MD 12/25/2017 9:57 PM EDT
--- NOTE | 2017-12-26 08:54 | P.TTN ---
- Patient Problems Problems: 1. Discharge planning 2. Medication compliance 3. Knowledge deficit 4. Lack of coping skills - Progress Toward Goals Provider Present: Dr. Johnny Lambert Provider Input: Patient currently not receiving medication, has history of bizarre delusions, neuropsychological consult requested and OT evaluation Psychiatric Counselors Present: Other Psychiatric Therapist Input: Karlene- patient new admission and new to this counselor Group Spec/RT/OT/DYSON Present: Milind Colmenares OT, KARIS Cee Occupational Therapist Input: BRANDY valenzuela requested - Documentation Teaching Recipient: Patient
[2017-12-26] MEDS: ESTROGENS CONJUGATED 1.25 MG PO SCH (09:52)
[2017-12-26] MEDS: Multivitamin/Minerals Therapeutic Tablet PO SCH (09:53)
[2017-12-26] MEDS: Senna/Docusate Sodium 8.6/50 MG Tablet PO SCH ×2 (09:53→21:10)
[2017-12-26] MEDS: Folic Acid 1 MG Tablet PO SCH (09:53)
--- NOTE | 2017-12-26 11:19 | P.PNPSY ---
Subjective Chief Complaint: Becerril act Remarks: Pt seen and discussed with staff. Pt was admitted for delusional behaviors. She has been argumentative with RN about medications. She remains fixated on delusions that she has won a million dollar house. No SI/HI. Mental Status Examination Appearance: Appropriate Consciousness: Alert Orientation: Person, Place, Date/Time Motor Activity: Other (No abnormal motor movements noted) Speech: Unremarkable Language: Adequate Fund of Knowledge: Adequate Attention and Concentration: Adequate Memory: Unremarkable Mood: Appropriate Affect: Appropriate Thought Process & Associations: Circumstantial Thought Content: Delusional Hallucination Type: None Delusion Type: Other (Grandiose) Suicidal Ideation: No Suicidal Plan: No Suicidal Intention: No Homicidal Ideation: No Homicidal Plan: No Homicidal Intention: No Insight: Poor Judgment: Poor Assessment and Plan - Assessment (1) Delusional disorder, 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
--- NOTE | 2017-12-27 09:04 | P.PNPSY ---
Subjective Remarks: Medical records reviewed and discussed with nursing staff. JANE Finch and I met with patient in her room. Patient states that she has had loose stools for three days and is starting to feel weak. She was encouraged to continue to take in fluids. She continues to be somewhat delusional. She cannot recall if she lives in [place] or [place]. She spoke of a disagreement with her daughter that caused to find her own place. She states that she went to [place] to be with friends, nursing reports that when she arrived in [place] she did not know where she was. She is very pleasant and cooperative. Review of Systems All other systems reviewed negative except as stated in HPI Mental Status Examination Appearance: Appropriate Consciousness: Alert Orientation: Person, Place, Date/Time Motor Activity: Other (No abnormal motor movements noted) Speech: Unremarkable Language: Adequate Fund of Knowledge: Adequate Attention and Concentration: Adequate Memory: Impaired Mood: Appropriate Affect: Appropriate Thought Process & Associations: Circumstantial Thought Content: Delusional Hallucination Type: None Delusion Type: Other (Grandiose) Suicidal Ideation: No Suicidal Plan: No Suicidal Intention: No Homicidal Ideation: No Homicidal Plan: No Homicidal Intention: No Insight: Poor Judgment: Poor Assessment and Plan - Assessment (1) Delusional disorder, 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 Request Healthcare Surrogate/Guardian Advocate?: Yes
--- NOTE | 2017-12-27 09:34 | P.CON ---
History of Present Illness Service: [facility] Consult date: 12/27/17 Requesting Physician: Sarah Hung Reason for Consult: Diarrhea Primary Care Provider: No Primary Care Physician Chief Complaint: diarrhea History of Present Illness: This is an 82-year-old female with significant past medical history of GERD, hyperlipidemia, hypertension, memory deficit, vulvar cancer, arthritis. Patient presented to the emergency room under a Becerril act. For review medical records, patient was delusional believing that she had won the [employer] prize and was given a house in [place]. She was found attempting to get into someone else 's house and were no enforcement present that she was agitated and was brought in for further evaluation. She has prior history of psychiatric disturbance, there is history of dyslexia. Patient indicates that she is here because she just moved down here from [place] and was coming to visit her 2 sonsOver the last. Over the last 2 days, patient has been having diarrhea, indicates that it is watery, has some mild abdominal cramping. Endorses that the episodes were so frequent that she had to wear multiple layers of clothing overnight. No fever, no chills. No nausea, no vomiting, appetite has been poor. She endorses history of colitis many years ago. States that occasionally has some diarrhea episodes that occur monthly. Patient is on a schedule Esha-Colace. Last dose was 12/25/2017. Denies any recent antibiotic use. No sick contacts. His stool cultures have been collected. Denies any other symptoms, no chest pain, shortness of breath. She remains delusional, is not really clear why she is here in the hospital, indicates she was just moving down from [place]. Hospitalist services are requested for medical management. Review of Systems All other systems reviewed negative except as stated in HPI PMFSH - History History Provided By: Patient - Medical History Medical History: Medical History (Last Updated 12/27/17 @ 14:25 by NAIMA López) Arthritis Colon polyps Diverticulosis GERD (gastroesophageal reflux disease) H/O: hysterectomy High cholesterol Hx of hysterectomy Hypertension Memory deficit Pelvic mass Skin cancer Vulvar cancer - Family History Family History: Family History (Last Updated 12/27/17 @ 13:39 by NAIMA López) Mother Pancreatic cancer Father Coronary artery disease - Tobacco History Second Hand Smoke Exposure: Yes Smoking Status: Never smoker - Alcohol History How Often Do You Have a Drink Containing Alcohol: Monthly or less - Substance Use History Substance History: No History of Abuse - Travel History Recent Travel in the [place] Within the Last 8 Weeks: No Recent Travel Out of the Country Within the Last 8 Weeks: No - Immunization History Tetanus Immunization: <5 Years Hx Influenza Vaccine This Season: No Medications and Allergies Active Medications: Active Medications Al Hydrox/Mg Hydrox/Simethicone (Mag-Al Plus Susp Liq) 30 ml PO Q6H PRN PRN Reason: DYSPEPSIA Al Hydroxide/Mg Hydroxide (Milk Of Magnesia Liq) 30 ml PO Q12H PRN PRN Reason: Mild Constipation Estrogens Conjugated (Premarin) 1.25 mg PO DAILY [facility] Last Admin: 12/26/17 09:52 Dose: 1.25 mg Flumazenil (Romazecon Inj) 0.2 mg IV.PUSH Q1M PRN PRN Reason: OVERSEDATION Folic Acid (Folic Acid) 1 mg PO DAILY [facility] Stop: 12/30/17 08:59 Last Admin: 12/26/17 09:53 Dose: Not Given Lorazepam (Ativan) 1 mg PO Q4H PRN PRN Reason: for CIWA 8-10 Lorazepam (Ativan) 2 mg PO Q2H PRN PRN Reason: for CIWA 11-14 Lorazepam (Ativan Inj) 2 mg IV.PUSH Q2H PRN PRN Reason: for CIWA 11-14 Lorazepam (Ativan Inj) 2 mg IV.PUSH Q1H PRN PRN Reason: for CIWA 15-20 Lorazepam (Ativan Inj) 2 mg IV.PUSH Q15M PRN PRN Reason: for CIWA > 20 Lorazepam (Ativan Inj) 1 mg IV.PUSH Q4H PRN PRN Reason: for CIWA 8-10 Multivitamins/Minerals (Theragran-M) 1 tab PO DAILY [facility] Stop: 12/30/17 08:59 Last Admin: 12/26/17 09:53 Dose: Not Given Senna/Docusate Sodium (Esha-Colace) 1 tab PO BID [facility] Last Admin: 12/26/17 21:10 Dose: Not Given Thiamine HCl (Vitamin B1) 100 mg PO DAILY [facility] Last Admin: 12/26/17 09:53 Dose: Not Given Allergies Allergy/AdvReac Type Severity Reaction Status Date / Time No Known Allergies Allergy Unverified 12/22/17 13:46 Home Medications Medication Instructions Recorded Confirmed Type conjugated estrogens [Premarin] 1.25 mg PO DAILY 12/22/17 12/22/17 History diazepam 5 mg PO DAILY 12/22/17 12/22/17 History Physical Exam Vital signs: Vital Signs 12/26/17 20:01 12/27/17 06:29 Temperature 97.6 F 98.4 F Pulse Rate 70 82 Respiratory Rate 17 18 Blood Pressure 110/69 116/56 L Pulse Oximetry 95 96 Intake & Output 12/26/17 12/27/17 12/27/17 18:59 06:59 18:59 Intake Total 220 / 220 Balance 220 / 220 Intake: Oral 120 / 120 Oral Supplement 100 / 100 Other: # Voids 2 # Bowel Movements 0 Narrative: GENERAL: Well-nourished, well-developed patient in no apparent distress. SKIN: Warm and dry. HEAD: Atraumatic. Normocephalic. EYES: Pupils equal and round. No scleral icterus. No injection or drainage. ENT: No nasal bleeding or discharge. Mucous membranes pink and moist. NECK: Trachea midline. No JVD. CARDIOVASCULAR: Regular rate and rhythm. RESPIRATORY: No accessory muscle use. Clear to auscultation. Breath sounds equal bilaterally. GASTROINTESTINAL: Abdomen soft, minimally tender lower abdomen, nondistended. Hepatic and splenic margins not palpable. MUSCULOSKELETAL: Extremities without clubbing, cyanosis, or edema. No obvious deformities. NEUROLOGICAL: Awake and alert. No obvious cranial nerve deficits. Motor grossly within normal limits. Five out of 5 muscle strength in the arms and legs. Normal speech. PSYCHIATRIC: Delusional. Assessment and Plan - Plan 82-year-old elderly female admitted to inpatient psych with delusional disorder. Complains of diarrhea for the last 2 days, no fever, no chills. Delusional disorder -Continue with psychiatric care Diarrhea, was on scheduled Esha-Colace twice daily. Last dose 12/25/2017. Complains of mild abdominal cramping, no fever, no chills. Rule out possible infectious source, versus schedule use of stool softeners. -Stool culture pending -Stool for C. difficile has been sent We will check CBC and BMP and replace electrolytes as needed Encourage p.o. fluids We will hold Esha-Colace at this time. Plan of care discussed with patient and RN. Further management of the patient will be dependent on hospital course Thank you for allowing us to participate in the care of this patient
[2017-12-27] MEDS: Folic Acid 1 MG Tablet PO SCH (10:33)
[2017-12-27] MEDS: ESTROGENS CONJUGATED 1.25 MG PO SCH (10:34)
[2017-12-27] MEDS: Senna/Docusate Sodium 8.6/50 MG Tablet PO SCH (10:34)
[2017-12-27] MEDS: Multivitamin/Minerals Therapeutic Tablet PO SCH (10:34)
[2017-12-27 12:39] LABS: Calcium 8.6 mg/dL (8.5-10.1); Carbon Dioxide 22.8 meq/L (21.0-32.0); Potassium 3.8 meq/L (3.5-5.1)
[2017-12-28] MEDS: ESTROGENS CONJUGATED 1.25 MG PO SCH (09:13)
[2017-12-28] MEDS: Folic Acid 1 MG Tablet PO SCH (09:13)
[2017-12-28] MEDS: Multivitamin/Minerals Therapeutic Tablet PO SCH (09:14)
--- NOTE | 2017-12-28 12:15 | P.PNPSY ---
Subjective Chief Complaint: Becerril act Remarks: Patient seen and examined with nurse. Chart reviewed. Some issues with diarrhea over the weekend, now reportedly resolved. Hospitalist consulted, and I did discuss the case with the mid-level from the hospitalist service today. Case discussed with nursing staff. Patient noted to be fairly seclusive to room. On my examination today, the patient is irritable. She is discharged focused. She has written on a paper 72, referring to the number of hours that she believes she can be kept in the hospital. She believes that this equals "4 days" and that this period is now . Indeed, she believes she has been hospitalized here for 10 days. She is fairly confused overall. When I explained to her the concerns highlighted in the neuropsychologist note, she becomes particularly irate and repeatedly threatens to carl. No physical complaints, and patient denies any bowel issues. I did endeavor to reach out once again to the patient's son as he had reportedly left a message this morning and left a generic voicemail requesting a call back. Vital Signs Temp Pulse Resp BP Pulse Ox 12/28/17 08:59 150/80 H 12/28/17 06:09 98.0 F 119 H 17 157/108 H 96 12/27/17 17:17 98.8 F 80 18 120/64 95 Intake and Output 12/27/17 12/28/17 12/28/17 22:59 06:59 14:59 Intake Total 480 / 480 Balance 480 / 480 Intake: Oral 480 / 480 Other: # Voids 2 1 Weight 65.8 kg Laboratory Results - last 24 hr 12/26/17 12/27/17 07:50 12:15 Stl C.difficile Tox PCR Negative St C. diff Tox Epid 027 Negative RPR Nonreactive Labs reviewed. Dementia workup so far unrevealing. Head CT 12/25/17 00:00 CONCLUSION: 1. No acute intracranial abnormalities. Review of Systems All other systems reviewed negative except as stated in HPI (Limitation: Uncooperative) Mental Status Examination Appearance: Appropriate Consciousness: Alert Orientation: Person, Place, Date/Time (December) Motor Activity: Other (No motor abnormalities noted) Speech: Unremarkable Language: Adequate Fund of Knowledge: Adequate Attention and Concentration: Adequate Memory: Impaired Mood: Irritable Affect: Irritable Thought Process & Associations: Circumstantial Thought Content: Delusional Hallucination Type: None Delusion Type: Other (Grandiose) Suicidal Ideation: No Homicidal Ideation: No Insight: Poor Judgment: Poor Assessment and Plan - Assessment (1) Delusional disorder, 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 Patient would likely benefit from an antipsychotic. Follow-up outstanding dementia workup labs. Hospitalist input noted and appreciated. Continue other medications and care as ordered. Continue to monitor on the inpatient unit. Justification for Continued Inpatient Stay: High risk for decompensation in less restrictive environment. Impairment in reality construction. Discharge Planning: Pending psychiatric stabilization. Possible placement. Request Healthcare Surrogate/Guardian Advocate?: Yes
--- NOTE | 2017-12-28 12:32 | P.PN ---
Subjective Interval history: follow up on diarrhea: Patient indicates that her last episode of loose stool was yesterday, very little today. No abdominal cramping. No nausea, no vomiting. Eating a little better. Has been drinking fluids. Wants to go home. No fever. Physical Exam Vital signs: Vital Signs 12/27/17 17:17 12/28/17 06:09 12/28/17 08:59 Temperature 98.8 F 98.0 F Pulse Rate 80 119 H Respiratory Rate 18 17 Blood Pressure 120/64 157/108 H 150/80 H Pulse Oximetry 95 96 Intake & Output 12/27/17 12/28/17 12/28/17 18:59 06:59 18:59 Intake Total 480 / 480 0 / 0 Balance 480 / 480 0 / 0 Weight 65.8 kg Intake: Oral 480 / 480 0 / 0 Other: # Voids 2 1 Narrative: GENERAL: Well-nourished, well-developed patient in no apparent distress. SKIN: Warm and dry. HEAD: Atraumatic. Normocephalic. EYES: Pupils equal and round. No scleral icterus. No injection or drainage. ENT: No nasal bleeding or discharge. Mucous membranes pink and moist. NECK: Trachea midline. No JVD. CARDIOVASCULAR: Regular rate and rhythm. RESPIRATORY: No accessory muscle use. Clear to auscultation. Breath sounds equal bilaterally. GASTROINTESTINAL: Abdomen soft, non-tender, nondistended. Hepatic and splenic margins not palpable. MUSCULOSKELETAL: Extremities without clubbing, cyanosis, or edema. No obvious deformities. NEUROLOGICAL: Awake and alert. No obvious cranial nerve deficits. Motor grossly within normal limits. Five out of 5 muscle strength in the arms and legs. Normal speech. PSYCHIATRIC: Delusional. Results - Labs CBC & Chem 7: 12/25/17 08:03 12/27/17 10:14 Laboratory Results - last 24 hr 12/26/17 12/27/17 12/27/17 07:50 10:14 12:15 Sodium 141 Potassium 3.8 Chloride 105 Carbon Dioxide 22.8 Anion Gap 13 BUN 12 Creatinine 0.82 Estimated GFR 67 L Random Glucose 97 Calcium 8.6 Stl C.difficile Tox PCR Negative St C. diff Tox Epid 027 Negative RPR Nonreactive Microbiology 12/27/17 12:15 Stool Cryptosporidium Antigen - Final Negative - No Cryptosporicium antigen detected In selected cases of patients with a history of immunosuppression or foreign travel, a full ova and parasites examination may be desired. Contact the microbiology lab if full workup is indicated and subit another specimen for testing. 12/27/17 12:15 Stool Giardia Antigen (RYLEY) - Final Negative - No Giardia Antigen detected In selected cases of patients with a history of immunosuppression or foreign travel, a full ova and parasites examination may be desired. Contact the microbiology lab if full workup is indicated and subit another specimen for testing. Assessment and Plan - Plan 82-year-old elderly female admitted to inpatient psych with delusional disorder. Complains of diarrhea for the last 2 days, no fever, no chills. Delusional disorder -Continue with psychiatric care Diarrhea, was on scheduled Esha-Colace twice daily. Last dose 12/25/2017. Complained of mild abdominal cramping, no fever, no chills. Rule out possible infectious source, versus schedule use of stool softeners. diarrhea resolved. -stool cultures negative for Giardia, C. difficile, Cryptosporidium. -Electrolytes stable Esha-Colace on hold Bowel regimen PRN only Encourage p.o. intake Elevated BP BP occ. elevated -Continue with Clonidine PRN Will sign off for now, reconsult if needed
[2017-12-28] MEDS ORDERED: Haloperidol Inj 5 MG/ML Ampul IM PRN (13:14)
[2017-12-28] MEDS: risperiDONE 0.5 MG ODT PO SCH (20:19)
[2017-12-29] MEDS ORDERED: amLODIPine 5 MG Tablet PO SCH (09:00)
[2017-12-29] MEDS: risperiDONE 0.5 MG ODT PO SCH ×2 (09:42→20:18)
[2017-12-29] MEDS: Folic Acid 1 MG Tablet PO SCH (09:42)
[2017-12-29] MEDS: ESTROGENS CONJUGATED 1.25 MG PO SCH (09:42)
[2017-12-29] MEDS: Multivitamin/Minerals Therapeutic Tablet PO SCH (09:42)
--- NOTE | 2017-12-29 11:45 | P.PNPSY ---
Subjective Chief Complaint: Becerril act Remarks: Patient seen and examined with nurse. Chart reviewed. Case discussed with nursing staff. Nurse has obtained medication list from patient's outpatient primary care doctor. I have resumed the aspirin, statin and replaced her H2RA with PPI as the former can sometimes worsen mental status. I will request hospitalist input regarding the patient's antihypertensives as the patient is on multiple antihypertensives and I am concerned about causing hypotension by resuming them. Case discussed in treatment team. On my examination today, the patient remains paranoid. I suspect she has ongoing delusional material malick to her previous report, but she declines to share this with me today saying that I would not believe her anyway. She denies side effects from the Risperdal. No acute physical complaints. Vital Signs Temp Pulse Resp BP Pulse Ox 12/29/17 11:40 97.6 F 104 H 18 161/73 H 95 12/29/17 06:25 97.4 F L 89 16 112/58 L 92 L 12/28/17 18:20 98.3 F 114 H 17 168/79 H 92 L Intake and Output 12/28/17 12/29/17 12/29/17 22:59 06:59 14:59 Intake Total 0 / 0 Balance 0 / 0 Intake: Oral 0 / 0 Other: # Voids 5 Date of Last Bowel Movement 12/28/17 # Bowel Movements 1 Laboratory Results - last 24 hr 12/24/17 06:10 Vit D 1,25-Dihydroxy 84 H Labs reviewed. Vitamin D level is high and so I will not resume the patient's vitamin D supplement. Review of Systems All other systems reviewed negative except as stated in HPI (Limitation: Psychosis) Mental Status Examination Appearance: Appropriate Consciousness: Alert Orientation: Person, Place (At least) Motor Activity: Other (No hand tremor, no cogwheeling, no dystonia, no dyskinesia, no other motor abnormalities noted.) Speech: Unremarkable Language: Adequate Fund of Knowledge: Adequate Attention and Concentration: Adequate Memory: Impaired Mood: Irritable (Mild) Affect: Irritable Thought Process & Associations: Circumstantial Thought Content: Delusional Hallucination Type: None Delusion Type: Other (Suspect ongoing grandiosity) Suicidal Ideation: No Homicidal Ideation: No Insight: Poor Judgment: Poor Assessment and Plan - Assessment (1) Delusional disorder, 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 We will consider further titration of this agent perhaps tomorrow or . Other medications reconciled as noted above. Hospitalist consultation requested. Continue to monitor on the inpatient unit. Continue other medications and care as ordered. Justification for Continued Inpatient Stay: Impairment in reality construction. Risk for decompensation in less restrictive environment. Discharge Planning: Pending psychiatric stabilization. Possible placement. Request Healthcare Surrogate/Guardian Advocate?: Yes
--- NOTE | 2017-12-29 11:45 | P.TTN ---
- Patient Problems Problems: 1. Discharge planning 2. Medication compliance 3. Knowledge deficit 4. Lack of coping skills - Progress Toward Goals Provider Present: Dr. Johnny Lambert Provider Input: Patient currently not receiving medication, has history of bizarre delusions, neuropsychological consult requested and OT evaluation. 12/29: Still meets criteria Nurse(s) Present: Shaunna Nurse Input: Fixed delusions about winning the "[employer]". Sleeps well 6 to 7 hours nightly. Appropriate with staff. Treatment cooperative. Med compliant. Psychiatric Counselors Present: Other Psychiatric Therapist Input: Karlene- patient new admission and new to this counselor Group Spec/RT/OT/DYSON Present: Radha Brothers, GPS, Milind Colmenares, OT, Wayne Pleitez, DYSON Group Spec/RT/OT/DYSON Input: Pt tends to isolate to her room. Pt needs alot of encouragement to participate in the group activities. Presents with a somber mood. Occupational Therapist Input: OT bianca requested - Documentation Teaching Recipient: Patient
--- NOTE | 2017-12-29 17:14 | P.PN ---
Subjective Interval history: Reconsult for HTN Patient seen and examined today. Reports she is doing well. States her blood pressure is elevated today, since this morning. Patient states that she takes blood pressure medication at home and was not restarted on it and she was asking for this medication today but was not on her records. Otherwise, denies chest pain, palpitations, headaches, dizziness. Denies fevers, chills, nausea, vomiting. Physical Exam Vital signs: Vital Signs 12/28/17 18:20 12/29/17 06:25 12/29/17 11:40 Temperature 98.3 F 97.4 F L 97.6 F Pulse Rate 114 H 89 104 H Respiratory Rate 17 16 18 Blood Pressure 168/79 H 112/58 L 161/73 H Pulse Oximetry 92 L 92 L 95 Intake & Output 12/28/17 12/29/17 12/29/17 18:59 06:59 18:59 Intake Total 0 / 0 Balance 0 / 0 Intake: Oral 0 / 0 Other: # Voids 5 Date of Last Bowel Movement 12/28/17 12/29/17 # Bowel Movements 1 Narrative: GENERAL: This is a well-nourished, well-developed patient, in no apparent distress. SKIN: Warm and dry. HEENT: Normocephalic. Pupils equal round and reactive. Nose without bleeding. Airway patent. NECK: Trachea midline. CARDIOVASCULAR: Regular rate and rhythm without murmurs, gallops, or rubs. RESPIRATORY: Clear to auscultation. Breath sounds equal bilaterally. No wheezes , rales, or rhonchi. GASTROINTESTINAL: Abdomen soft, non-tender, nondistended. Bowel Sounds normoactive x4. MUSCULOSKELETAL: Extremities without clubbing, cyanosis, or edema. NEUROLOGICAL: Awake and alert. No focal neuro deficit. Moves all extremities. Normal speech. Results - Labs CBC & Chem 7: 12/25/17 08:03 12/27/17 10:14 Assessment and Plan - Plan 82-year-old elderly female admitted to inpatient psych with delusional disorder. HTN, uncontrolled Tachycardia, sinus -EKG reviewed sinus tachycardia, heart rate 116 -Patient continues to have heart rate in the high 100 -Restart home medication diltiazem, atenolol -Monitor BP trend Delusional disorder -Continue with psychiatric care Diarrhea, resolved -stool cultures negative for Giardia, C. difficile, Cryptosporidium. -Encourage p.o. intake DVT prop, ambulatory If blood pressure stable, heart rate is stable will sign off. Code Status: Full code Discussed Condition With: Patient, nursing Discharge Planning: DC disposition by primary team
[2017-12-29] MEDS ORDERED: Lisinopril 10 MG Tablet PO SCH (17:15)
[2017-12-30] MEDS: ESTROGENS CONJUGATED 1.25 MG PO SCH (08:16)
[2017-12-30] MEDS: risperiDONE 0.5 MG ODT PO SCH (08:16)
[2017-12-30] MEDS: Pantoprazole Sodium 20 MG DR Tablet PO SCH (08:17)
[2017-12-30] MEDS ORDERED: Atenolol 50 MG Tablet PO SCH (09:00)
[2017-12-30] MEDS ORDERED: dilTIAZem CD 240 MG Capsule PO SCH (09:00)
--- NOTE | 2017-12-30 13:11 | P.PNPSY ---
Subjective Chief Complaint: Becerril act Remarks: Patient seen and examined with nurse. Chart reviewed. Case discussed with nursing staff. No behavioral issues noted. On my examination today, the patient is calm and cooperative. She is somewhat discharged focused and says that she drove all the way from [place] by herself and so sees no reason why she cannot live independently here. When I inquire about the house that she believes that she won from the [employer] prize committee she says that she will not even mention this because no one will believe her. No side effects from medications. Continues to complain of some diarrhea and in light of negative stool cultures and C. difficile PCR, I will add some Imodium. No other physical complaints. Vital Signs Temp Pulse Resp BP Pulse Ox 12/30/17 06:00 97.8 F 86 20 92/57 L 92 L 12/29/17 18:41 97.6 F 96 H 16 120/70 92 L Intake and Output 12/30/17 12/30/17 12/30/17 06:59 14:59 22:59 Intake Total 120 / 120 Balance 120 / 120 Intake: Oral 120 / 120 Other: # Voids 2 Date of Last Bowel Movement 12/30/17 Laboratory Results - last 24 hr 12/26/17 07:50 Thiamine 151 Labs reviewed. Review of Systems All other systems reviewed negative except as stated in HPI Mental Status Examination Appearance: Appropriate Consciousness: Alert Orientation: Person, Place (At least) Motor Activity: Other (No motor abnormalities noted) Speech: Unremarkable Language: Adequate Fund of Knowledge: Adequate Attention and Concentration: Adequate Memory: Impaired Mood: Appropriate Affect: Appropriate Thought Process & Associations: Circumstantial Thought Content: Delusional Hallucination Type: None Delusion Type: Other (Continue to suspect underlying grandiosity) Suicidal Ideation: No Suicidal Plan: No Suicidal Intention: No Homicidal Ideation: No Homicidal Plan: No Homicidal Intention: No Insight: Poor Judgment: Poor Assessment and Plan - Assessment (1) Delusional disorder, 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 Add Imodium p.r.n. as noted above. Continue to monitor on the inpatient unit. Continue other medications and care as ordered. Justification for Continued Inpatient Stay: Risk for decompensation in less restrictive environment. Discharge Planning: Becerril court tomorrow. Request Healthcare Surrogate/Guardian Advocate?: Yes
[2017-12-30] MEDS ORDERED: Loperamide 2 MG Capsule PO PRN (15:15)
--- NOTE | 2017-12-30 16:45 | P.PN ---
Subjective Interval history: Follow-up visit hypotension, diarrhea. Patient seen and examined today. Reported by nursing to have hypotension today with SBP's in the 70s. Patient states that she has been having diarrhea for about a week now. Patient was asked yesterday if she is doing okay and states that she has no any other complaints. Diarrhea was never brought up. States that her stool was liquid, and its not a lot every time, states that she had it 4-6 times a day. Also complains of nausea, vomiting. Does not know what aggravates her nausea vomiting or diarrhea. Denies SOB/ dyspnea. Denies chest pain, palpitations, headaches, dizziness. Denies fevers, chills, n/v/d. Denies dysuria. Physical Exam Vital signs: Vital Signs 12/29/17 18:41 12/30/17 06:00 12/30/17 16:43 Temperature 97.6 F 97.8 F 97.6 F Pulse Rate 96 H 86 67 Respiratory Rate 16 20 16 Blood Pressure 120/70 92/57 L 66/47 L Pulse Oximetry 92 L 92 L 95 Intake & Output 12/29/17 12/30/17 12/30/17 18:59 06:59 18:59 Intake Total 480 / 480 0 / 0 120 / 120 Balance 480 / 480 0 / 0 120 / 120 Intake: Oral 480 / 480 0 / 0 120 / 120 Oral Supplement 0 / 0 Other: # Voids 4 2 Date of Last Bowel Movement 12/29/17 12/30/17 Narrative: GENERAL: This is a well-nourished, well-developed patient, in no apparent distress. SKIN: Warm and dry. HEENT: Normocephalic. Pupils equal round and reactive. Nose without bleeding. Airway patent. NECK: Trachea midline. CARDIOVASCULAR: Regular rate and rhythm without murmurs, gallops, or rubs. RESPIRATORY: Clear to auscultation. Breath sounds equal bilaterally. No wheezes , rales, or rhonchi. GASTROINTESTINAL: Abdomen soft, non-tender, nondistended. Bowel Sounds normoactive x4. MUSCULOSKELETAL: Extremities without clubbing, cyanosis, or edema. NEUROLOGICAL: Awake and alert. No focal neuro deficit. Moves all extremities. Normal speech. Results - Labs CBC & Chem 7: 12/25/17 08:03 12/27/17 10:14 Laboratory Results - last 24 hr 12/26/17 07:50 Thiamine 151 Assessment and Plan - Plan 82-year-old elderly female admitted to inpatient psych with delusional disorder. Diarrhea -stool cultures negative for Giardia, C. difficile, Cryptosporidium. -Started on loperamide -Add Lactinex twice daily -KUB ordered -IV fluids for hydration -Check labs in a.m. Now with hypotension HTN, Hx Tachycardia, sinus -EKG reviewed sinus tachycardia, heart rate 116 -Discontinue home medication diltiazem, atenolol secondary to hypotension. Patient got both medication this am although BP is 92/57 -Monitor BP trend, monitor heart rate -IV fluid for hydration Delusional disorder -Continue with psychiatric care DVT prop, ambulatory Code Status: Full Code Discussed Condition With: Patient, nurse Discharge Planning: DC disposition by primary team
[2017-12-30] MEDS: Sod Chloride 0.9% Inj 1,000 ML IV.CONT SCH (18:06)
[2017-12-30] MEDS: Lactobacillus Acidophilus/L. Spores Tablet PO SCH (20:56)
--- NOTE | 2017-12-30 23:15 | XR ---
EXAM DATE: 12/30/2017 12:00 AM EDT AGE/SEX: 82 years / Female INDICATIONS: Abdominal pain and nausea. CLINICAL DATA: This is the patient's initial encounter. Patient reports that signs and symptoms have been present for 3 days and indicates a pain score of 7/10. MEDICAL/SURGICAL HISTORY: None. None. COMPARISON: No prior exams available for comparison. FINDINGS: No dilated loops of small or large bowel. Normal carpal small calcifications laterally in the right upper quadrant measuring up to 5 mm which could represent gallstones. Calcified phlebolith in the rig ht flank at the level of the sacrum. Symmetric moderate degenerative changes in the hips. CONCLUSION: No dilated loops of small or large bowel. Possible gallstones. Electronically signed by: Bowen Perez MD 12/30/2017 11:13 PM EDT
[2017-12-31] MEDS: Sod Chloride 0.9% Inj 1,000 ML IV.CONT SCH ×3 (01:55→22:30)
[2017-12-31 08:06] LABS: Baso % (Auto) 0.3 % (0.0-2.0); Eos # (Auto) 0.1 th/mm3 (0.0-0.4); Eos % (Auto) 0.4 % (0.0-4.0); Hematocrit 42.5 % (35.0-46.0); Lymph # (Auto) 3.7 th/mm3 (1.0-4.8); Lymph % (Auto) 27.6 % (9.0-44.0); Mean Corpuscular HGB Conc 32.9 % (32.0-36.0); Mean Corpuscular Hemoglobin 29.5 pg (27.0-34.0); Mean Corpuscular Volume 89.5 fL (80.0-100.0); Mean Platelet Volume 9.7 fL (7.0-11.0); Mono # (Auto) 0.8 th/mm3 (0.0-0.9); Mono % (Auto) 6.2 % (0.0-8.0); Neut # (Auto) 8.8 th/mm3 (1.8-7.7); Neut % (Auto) 65.5 % (16.0-70.0); Platelet Count 240 th/mm3 (150-450); Red Blood Count 4.75 mil/mm3 (4.00-5.30); Red Cell Distribution Width 13.6 % (11.6-17.2); White Blood Count 13.4 th/mm3 (4.0-11.0)
[2017-12-31 08:27] LABS: Alanine Aminotransferase 20 U/L (10-53); Anion Gap 11 meq/L (5-15); Aspartate Aminotransferase 15 U/L (15-37); Blood Urea Nitrogen 29 mg/dL (7-18); Calcium 8.1 mg/dL (8.5-10.1); Carbon Dioxide 24.9 meq/L (21.0-32.0); Chloride 103 meq/L (98-107); Glomerular Filtration Rate 14 mL/min (>89); Glucose,Random 130 mg/dL (74-106); Potassium 3.9 meq/L (3.5-5.1); Sodium 139 meq/L (136-145)
[2017-12-31 08:29] LABS: Alkaline Phosphatase 67 U/L (45-117); Total Protein 6.7 g/dL (6.4-8.2)
--- NOTE | 2017-12-31 09:29 | P.PNPSY ---
Subjective Chief Complaint: Becerrli act Remarks: Patient seen and case discussed with nursing staff. Chart reviewed. For me today, patient remains delusional, believing that she has won the [employer] prize and was looking for her house that she had won when she was picked up by the police. This narrative is a nearly verbatim recitation of the material she shared at our initial interview. She remains somewhat confused as at recent baseline. No physical complaints. Vital Signs Temp Pulse Resp BP Pulse Ox 12/31/17 11:37 97.6 F 56 L 18 84/53 L 93 L 12/31/17 07:15 64 20 78/50 L 12/31/17 04:00 97.6 F 52 L 16 65/41 L 93 L 12/30/17 23:23 97.3 F L 62 16 148/82 H 97 12/30/17 20:00 99 F 113 H 18 148/82 H 97 12/30/17 18:42 97.3 F L 62 16 77/50 L 92 L Intake and Output 12/31/17 12/31/17 12/31/17 06:59 14:59 22:59 Intake Total 60 / 60 1240 / 1240 Output Total 50 / 50 Balance 60 / 60 1190 / 1190 Intake: IV 1000 / 1000 NS Inj 1,000 ML @ 150 mls/hr IV 1000 / 1000 .CONT .Q6H40M [facility] Rx#:[id number] Oral 60 / 60 240 / 240 Output: Urine 50 / 50 Other: # Voids 1 1 Date of Last Bowel Movement 12/30/17 Laboratory Results - last 24 hr 12/26/17 12/31/17 12/31/17 07:50 07:43 07:43 WBC 13.4 H RBC 4.75 Hgb 14.0 Hct 42.5 MCV 89.5 MCH 29.5 MCHC 32.9 RDW 13.6 Plt Count 240 MPV 9.7 Neut % (Auto) 65.5 Lymph % (Auto) 27.6 [place] % (Auto) 6.2 Eos % (Auto) 0.4 Baso % (Auto) 0.3 Neut # (Auto) 8.8 H Lymph # (Auto) 3.7 [place] # (Auto) 0.8 Eos # (Auto) 0.1 Baso # (Auto) 0.0 WBC Differential . Differential Comment Auto diff final Sodium 139 Potassium 3.9 Chloride 103 Carbon Dioxide 24.9 Anion Gap 11 BUN 29 H Creatinine 3.12 H Estimated GFR 14 L Random Glucose 130 H Calcium 8.1 L Total Bilirubin 0.4 AST 15 ALT 20 Alkaline Phosphatase 67 Total Protein 6.7 Albumin 3.0 L RBC Folate 592 Labs reviewed. Decreased GFR/LAURIE noted. Hospitalist has ordered fluid bolus and recheck BMP. Impressions Abdomen X-Ray 12/30/17 00:00 CONCLUSION: No dilated loops of small or large bowel. Possible gallstones. Review of Systems other (Limited ROS today) Mental Status Examination Appearance: Appropriate Consciousness: Alert Orientation: Person, Place (At least) Motor Activity: Other (No motoric abnormalities noted) Speech: Unremarkable Language: Adequate Fund of Knowledge: Adequate Attention and Concentration: Adequate Memory: Impaired Mood: Appropriate Affect: Appropriate Thought Process & Associations: Circumstantial Thought Content: Delusional Hallucination Type: None Delusion Type: Other (Grandiose) Suicidal Ideation: No Homicidal Ideation: No Insight: Poor Judgment: Poor Assessment and Plan - Assessment (1) Delusional disorder, 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 Monitor renal function with ongoing hydration. Hospitalist input appreciated. Continue to monitor on the medical psychiatric unit. Continue other care as ordered. Patient's case was presented to the [place] act court and placed in continuance for 2 weeks with son to serve as health care surrogate. Justification for Continued Inpatient Stay: Complicating condition. Impairment in reality construction. High risk for decompensation in less restrictive environment. Discharge Planning: Placement Request Healthcare Surrogate/Guardian Advocate?: Yes
[2017-12-31] MEDS: Lactobacillus Acidophilus/L. Spores Tablet PO SCH ×2 (10:10→21:47)
[2017-12-31] MEDS: Pantoprazole Sodium 20 MG DR Tablet PO SCH (10:11)
[2017-12-31] MEDS: ESTROGENS CONJUGATED 1.25 MG PO SCH (11:44)
[2017-12-31] MEDS: Sod Chloride 0.9% Inj 1,000 ML IV.SIG SCH ×2 (13:30→15:30)
--- NOTE | 2017-12-31 13:47 | P.PN ---
Subjective Interval history: Follow-up for hypotension, acute kidney injury. Patient is resting in bed. Denies any chest pain, shortness of breath, fever or chills. Per nursing she has not had much urine output today. Her diarrhea is improved. Physical Exam Vital signs: Vital Signs 12/30/17 16:43 12/30/17 18:42 12/30/17 20:00 Temperature 97.6 F 97.3 F L 99 F Pulse Rate 67 62 113 H Respiratory Rate 16 16 18 Blood Pressure 66/47 L 77/50 L 148/82 H Pulse Oximetry 95 92 L 97 12/30/17 23:23 12/31/17 04:00 12/31/17 07:15 Temperature 97.3 F L 97.6 F Pulse Rate 62 52 L 64 Respiratory Rate 16 16 20 Blood Pressure 148/82 H 65/41 L 78/50 L Pulse Oximetry 97 93 L 12/31/17 11:37 Temperature 97.6 F Pulse Rate 56 L Respiratory Rate 18 Blood Pressure 84/53 L Pulse Oximetry 93 L Intake & Output 12/30/17 12/31/17 12/31/17 18:59 06:59 18:59 Intake Total 360 / 360 180 / 180 Output Total 150 / 150 50 / 50 Balance 210 / 210 180 / 180 -50 / -50 Intake: Oral 360 / 360 180 / 180 Oral Supplement 0 / 0 Output: Urine 150 / 150 50 / 50 Other: # Voids 2 1 1 Date of Last Bowel Movement 12/30/17 12/30/17 # Bowel Movements 1 Narrative: GENERAL: Alert, NAD. SKIN: Warm and dry. HEAD: Normocephalic. EYES: No scleral icterus. No injection or drainage. NECK: Supple, trachea midline. No JVD or lymphadenopathy. CARDIOVASCULAR: Regular rhythm, slightly bradycardic without murmurs, gallops, or rubs. RESPIRATORY: Breath sounds equal bilaterally. No accessory muscle use. GASTROINTESTINAL: Abdomen soft, non-tender, nondistended. MUSCULOSKELETAL: No cyanosis, or edema. BACK: Nontender without obvious deformity. No CVA tenderness. Results - Labs CBC & Chem 7: 12/31/17 07:43 12/31/17 07:43 Laboratory Results - last 24 hr 12/26/17 12/31/17 12/31/17 07:50 07:43 07:43 WBC 13.4 H RBC 4.75 Hgb 14.0 Hct 42.5 MCV 89.5 MCH 29.5 MCHC 32.9 RDW 13.6 Plt Count 240 MPV 9.7 Neut % (Auto) 65.5 Lymph % (Auto) 27.6 [place] % (Auto) 6.2 Eos % (Auto) 0.4 Baso % (Auto) 0.3 Neut # (Auto) 8.8 H Lymph # (Auto) 3.7 [place] # (Auto) 0.8 Eos # (Auto) 0.1 Baso # (Auto) 0.0 WBC Differential . Differential Comment Auto diff final Sodium 139 Potassium 3.9 Chloride 103 Carbon Dioxide 24.9 Anion Gap 11 BUN 29 H Creatinine 3.12 H Estimated GFR 14 L Random Glucose 130 H Calcium 8.1 L Total Bilirubin 0.4 AST 15 ALT 20 Alkaline Phosphatase 67 Total Protein 6.7 Albumin 3.0 L RBC Folate 592 - Imaging Impressions Abdomen X-Ray 12/30/17 00:00 CONCLUSION: No dilated loops of small or large bowel. Possible gallstones. Assessment and Plan - Assessment (1) Hypotension Code(s): I95.9 - Hypotension, unspecified Status: Acute (2) Acute kidney injury Code(s): N17.9 - Acute kidney failure, unspecified Status: Acute - Plan Ms. Gresham is an 82-year-old female with significant past medical history of GERD , hyperlipidemia, hypertension, memory deficit, vulvar cancer, arthritis who was admitted to the hospital due to delusional beliefs. She was having diarrhea up until 12/30/2017. She also had hypertension as well as tachycardia. Patient was started on Atenolol as well as diltiazem (both of which are her home meds). At night on 12/30/2017, she developed bradycardia, hypotension. Patient was subsequently transferred to med psych floor. She was started on normal saline at 100 cc/h. Morning labs on 12/31/2017 shows acute kidney injury. Acute hypotension Bradycardia -Hypotension and bradycardia are likely due to beta-scar and calcium channel scar use. -We will discontinue atenolol and diltiazem altogether. -If needed for hypertension, will consider amlodipine. -We will also provide normal saline bolus as well as continuous normal saline. Acute kidney injury -Creatinine was 0.82 on 12/27/2017. Creatinine jumped to 3.12 on 12/31/2017. -We will provide 1-2 L bolus normal saline today and then continuous normal saline at 150 cc/h. -Check BMP at 6 PM and then again in the morning. -If no improvement noted by tomorrow morning, will consider nephrology consultation. Hyperlipidemia GERD -Continue PPI as well as Lipitor. Full code. Ambulation.
--- NOTE | 2017-12-31 17:21 | XR ---
EXAM DATE: 12/31/2017 12:00 AM EDT AGE/SEX: 82 years / Female INDICATIONS: Cough, chest pain CLINICAL DATA: This is the patient's initial encounter. Patient reports that signs and symptoms have been present for 1 week and indicates a pain score of 2/10. MEDICAL/SURGICAL HISTORY: Hypertension. Hysterectomy. COMPARISON: No prior exams available for comparison. FINDINGS: A single AP view of the chest demonstrates the lungs to be symmetrically aerated without evidence of mass, infiltrate or effusion. The cardiomediastinal contours are unremarkable. Osseous structures a re intact. CONCLUSION: No active disease. Electronically signed by: Clay Medina MD 12/31/2017 5:20 PM EDT
[2017-12-31 18:46] LABS: Bacteria,Urine Many /hpf; Bilirubin,Urine Negative (Negative); Clarity,Urine Hazy (Clear); Color,Urine Yellow (Yellw/Straw); Glucose,Urine (UA) Negative (Negative); Hyaline Casts,Urine 4 /lpf (0-3); Leukocyte Esterase,Urine Negative (Negative); Mucus,Urine Few /lpf (Occasional); Nitrite,Urine Negative (Negative); Specific Gravity,Urine 1.005 (1.002-1.035); Squamous Epithelial Cell,Urine 3 /hpf (0-5)
[2017-12-31 19:23] LABS: Calcium 7.3 mg/dL (8.5-10.1); Carbon Dioxide 20.8 meq/L (21.0-32.0); Potassium 3.1 meq/L (3.5-5.1)
[2017-12-31 19:45] LABS: Total Protein 6.1 g/dL (6.4-8.2)
[2018-01-01] MEDS: Sod Chloride 0.9% Inj 1,000 ML IV.CONT SCH ×3 (05:25→20:15)
[2018-01-01 08:13] LABS: Calcium 7.7 mg/dL (8.5-10.1); Carbon Dioxide 21.8 meq/L (21.0-32.0); Potassium 3.6 meq/L (3.5-5.1)
[2018-01-01] MEDS: Pantoprazole Sodium 20 MG DR Tablet PO SCH ×2 (08:32→20:59)
[2018-01-01] MEDS: ESTROGENS CONJUGATED 1.25 MG PO SCH (08:32)
[2018-01-01] MEDS: Lactobacillus Acidophilus/L. Spores Tablet PO SCH ×2 (08:32→20:59)
[2018-01-01] MEDS: Potassium Chloride 25 MEQ Effervescent Tablet PO SCH ×2 (08:36→21:01)
[2018-01-01] MEDS: Aluminum/Magnesium/Simethacone Susp 30 ML UDC PO PRN (11:31)
--- NOTE | 2018-01-01 11:32 | P.PN ---
Subjective Interval history: Follow-up visit hypotension, acute kidney failure, poor appetite. Patient seen and examined today. Reports she is doing a lot better. States that she continues to have no appetite. States that she is lactose intolerant. Denies pain and discomfort. Denies SOB/ dyspnea. Denies chest pain, palpitations, headaches, dizziness. Denies fevers, chills, n/v/d. Denies dysuria. Physical Exam Vital signs: Vital Signs 12/31/17 11:37 12/31/17 18:00 01/01/18 06:16 Temperature 97.6 F 98.2 F 97.5 F L Pulse Rate 56 L 71 79 Respiratory Rate 18 17 18 Blood Pressure 84/53 L 115/64 126/60 Pulse Oximetry 93 L 92 L 92 L Intake & Output 12/31/17 01/01/18 01/01/18 18:59 06:59 18:59 Intake Total 3480 / 3480 3110 / 3110 120 / 120 Output Total 250 / 250 600 / 600 Balance 3230 / 3230 2510 / 2510 120 / 120 Intake: IV 3000 / 3000 1950 / 1950 NS Inj 1,000 ML @ 150 mls/hr IV 1000 / 1000 [birth year] .CONT .Q6H40M [facility] Rx#:[id number] NS Inj 1,000 ML @ Wide Open IV. 1999 / 1999 SIG BOLUS [facility] Rx#:[id number] Oral 480 / 480 1160 / 1160 120 / 120 Output: Urine 250 / 250 600 / 600 Other: # Voids 1 2 Date of Last Bowel Movement 12/30/17 12/30/17 Narrative: GENERAL: This is a well-nourished, well-developed patient, in no apparent distress. SKIN: Warm and dry. HEENT: Normocephalic. Pupils equal round and reactive. Nose without bleeding. Airway patent. NECK: Trachea midline. CARDIOVASCULAR: Regular rate and rhythm without murmurs, gallops, or rubs. RESPIRATORY: Clear to auscultation. Breath sounds equal bilaterally. No wheezes , rales, or rhonchi. GASTROINTESTINAL: Abdomen soft, non-tender, nondistended. Bowel Sounds normoactive x4. MUSCULOSKELETAL: Extremities without clubbing, cyanosis, or edema. NEUROLOGICAL: Awake and alert. No focal neuro deficit. Moves all extremities. Normal speech. Results - Labs CBC & Chem 7: 12/31/17 07:43 01/01/18 07:34 Laboratory Results - last 24 hr 12/31/17 12/31/17 01/01/18 17:43 18:13 07:34 Sodium 139 145 Potassium 3.1 L D 3.6 Chloride 107 113 H Carbon Dioxide 20.8 L 21.8 Anion Gap 11 10 BUN 26 H 20 H Creatinine 2.49 H 1.59 H Estimated GFR 19 L 31 L Random Glucose 137 H 99 Calcium 7.3 L* D 7.7 L Prot Corrected Calcium 7.8 L Total Protein 6.1 L D Urine Color Yellow Urine Clarity Hazy H Urine pH 5.0 Ur Specific [place] 1.005 Urine Protein Negative Urine Glucose (UA) Negative Urine Ketones Negative Urine Occult Blood Negative Urine Nitrate Negative Urine Bilirubin Negative Urine Urobilinogen Less than 2 Ur Leukocyte Esterase Negative Urine RBC Less than 1 Urine WBC 4 Ur Squamous Epith Cells 3 Urine Bacteria Many H Hyaline Casts 4 Granular Casts 7 Urine Mucus Few H Ur Microscopic Review Not Reportable - Imaging Impressions Chest X-Ray 12/31/17 00:00 CONCLUSION: No active disease. Assessment and Plan - Assessment (1) Hypotension Code(s): I95.9 - Hypotension, unspecified Status: Acute (2) Acute kidney injury Code(s): N17.9 - Acute kidney failure, unspecified Status: Acute - Plan 82-year-old elderly female admitted to inpatient psych with delusional disorder. She was transferred to medical psych unit secondary to hypotension. She got her home medication diltiazem, atenolol secondary to HTN. Both medications been given although BP recorded was 92/57. Patient's blood pressure dropped. Noted to have acute kidney failure. Acute hypotension Bradycardia -Hypotension and bradycardia are likely due to beta-scar and calcium channel scar use. -Discontinue atenolol and diltiazem altogether. -If needed for hypertension, will consider amlodipine. -We will also provide normal saline bolus as well as continuous normal saline. Acute kidney injury -Creatinine was 0.82 on 12/27/2017. Creatinine jumped to 3.12 on 12/31/2017. -1-2 L bolus normal saline given, continuous normal saline at 150 cc/h. -If no improvement noted by tomorrow morning, will consider nephrology consultation -MACHINIST MECHANIC 3.12 --> 2.49 --> 1.59 -Recheck renal indicis in a.m. Poor appetite, complains of esophageal reflux -Change to lactose-free diet -Supplement Ensure clear -Pantoprazole increased to twice daily -Maalox as needed -If without improvement tomorrow consult GI for possible EGD. Delusional disorder -Continue with psychiatric care Diarrhea -stool cultures negative for Giardia, C. difficile, Cryptosporidium. -Started on loperamide -Add Lactinex twice daily -KUB ordered -IV fluids for hydration -Resolved DVT prop, ambulatory Full code Discussed with patient, nursing Discharge Planning: DC disposition by primary team
--- NOTE | 2018-01-01 13:32 | P.PNPSY ---
Subjective Chief Complaint: Becerril act Remarks: Patient seen and examined with nurse. Chart reviewed. Case discussed with nursing staff who reports patient's sleep is somewhat poor. On my examination today, the patient is laying calmly in her room. She does indeed complain of poor sleep. No delusional material verbalized today. Complains of some esophageal reflux, which is being managed by the hospitalist, but otherwise no acute physical complaints. Vital Signs Temp Pulse Resp BP Pulse Ox 01/01/18 06:16 97.5 F L 79 18 126/60 92 L 12/31/17 18:00 98.2 F 71 17 115/64 92 L Intake and Output 01/01/18 01/01/18 01/01/18 06:59 14:59 22:59 Intake Total 950 / 950 1120 / 1120 Output Total 300 / 300 Balance 650 / 650 1120 / 1120 Intake: IV 950 / 950 1000 / 1000 NS Inj 1,000 ML @ 150 mls/hr IV 950 / 950 1000 / 1000 .CONT .Q6H40M [facility] Rx#:[id number] Oral 0 / 0 120 / 120 Output: Urine 300 / 300 Other: # Voids 2 Date of Last Bowel Movement 12/30/17 Laboratory Results - last 24 hr 12/31/17 12/31/17 01/01/18 17:43 18:13 07:34 Sodium 139 145 Potassium 3.1 L D 3.6 Chloride 107 113 H Carbon Dioxide 20.8 L 21.8 Anion Gap 11 10 BUN 26 H 20 H Creatinine 2.49 H 1.59 H Estimated GFR 19 L 31 L Random Glucose 137 H 99 Calcium 7.3 L* D 7.7 L Prot Corrected Calcium 7.8 L Total Protein 6.1 L D Urine Color Yellow Urine Clarity Hazy H Urine pH 5.0 Ur Specific [place] 1.005 Urine Protein Negative Urine Glucose (UA) Negative Urine Ketones Negative Urine Occult Blood Negative Urine Nitrate Negative Urine Bilirubin Negative Urine Urobilinogen Less than 2 Ur Leukocyte Esterase Negative Urine RBC Less than 1 Urine WBC 4 Ur Squamous Epith Cells 3 Urine Bacteria Many H Hyaline Casts 4 Granular Casts 7 Urine Mucus Few H Ur Microscopic Review Not Reportable Labs reviewed. Renal function improving. Urinalysis results reviewed. Review of Systems All other systems reviewed negative except as stated in HPI Mental Status Examination Appearance: Appropriate Consciousness: Alert Orientation: Person, Place (At least) Motor Activity: Other (No abnormal motor movements noted) Speech: Unremarkable Language: Adequate Fund of Knowledge: Adequate Attention and Concentration: Adequate Memory: Impaired Mood: Appropriate Affect: Appropriate Thought Process & Associations: Circumstantial Thought Content: Appropriate Hallucination Type: None Delusion Type: None (Does not verbalize any delusional material today although I suspect this is ongoing) Suicidal Ideation: No Homicidal Ideation: No Insight: Poor Judgment: Poor Assessment and Plan - Assessment (1) Delusional disorder, 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 If antipsychotic needs to be reintroduced over the weekend, to consider replacing Risperdal with a more sedating antipsychotic such as low-dose Zyprexa given difficulties with sleep. I will make melatonin available as needed for sleep. Hospitalist input noted and appreciated. Continue other medications and care as ordered. Justification for Continued Inpatient Stay: Complicating condition. High risk for decompensation in less restrictive environment. Discharge Planning: Placement Request Healthcare Surrogate/Guardian Advocate?: Yes
[2018-01-01] MEDS ORDERED: Melatonin 5 MG Tablet PO PRN (16:44)
[2018-01-02] MEDS: Sod Chloride 0.9% Inj 1,000 ML IV.CONT SCH ×3 (03:16→11:02)
[2018-01-02 08:17] LABS: Calcium 7.6 mg/dL (8.5-10.1); Carbon Dioxide 22.5 meq/L (21.0-32.0); Potassium 3.4 meq/L (3.5-5.1)
[2018-01-02] MEDS: Potassium Chloride 25 MEQ Effervescent Tablet PO SCH ×2 (09:00→21:57)
[2018-01-02] MEDS: Pantoprazole Sodium 20 MG DR Tablet PO SCH ×2 (09:00→21:57)
[2018-01-02] MEDS: Lactobacillus Acidophilus/L. Spores Tablet PO SCH ×2 (09:00→21:57)
[2018-01-02] MEDS: ESTROGENS CONJUGATED 1.25 MG PO SCH (09:00)
--- NOTE | 2018-01-02 11:11 | P.PN ---
Subjective Interval history: Follow-up visit hypotension, acute kidney failure, poor appetite. Patient seen and examined today. Patient reports she is feeling a lot better today. States she started eating breakfast. States that she had her IV last night but her arm got swollen and the nurse removed it. Patient States She Did Not Refuse Putting Back. Denies pain and discomfort. Denies SOB/ dyspnea. Denies chest pain, palpitations, headaches, dizziness. Denies fevers, chills, n/v/d. Denies dysuria. Physical Exam Vital signs: Vital Signs 01/01/18 18:14 01/02/18 05:39 Temperature 98.3 F 98.4 F Pulse Rate 80 72 Respiratory Rate 16 Blood Pressure 139/67 114/56 L Pulse Oximetry 97 93 L Intake & Output 01/01/18 01/02/18 01/02/18 18:59 06:59 18:59 Intake Total 1360 / 1360 2430 / 2430 120 / 120 Output Total 300 / 300 Balance 1360 / 1360 2130 / 2130 120 / 120 Intake: IV 1000 / 1000 1949 / 1950 NS Inj 1,000 ML @ 100 mls/hr IV 1000 / 1000 1949 / 1950 .CONT .Q10H EVANGELINA Rx#:[id number] Oral 360 / 360 480 / 480 120 / 120 Output: Urine 300 / 300 Other: # Voids 2 Date of Last Bowel Movement 12/30/17 12/30/17 Narrative: GENERAL: This is a well-nourished, well-developed patient, in no apparent distress. SKIN: Warm and dry. HEENT: Normocephalic. Pupils equal round and reactive. Nose without bleeding. Airway patent. NECK: Trachea midline. CARDIOVASCULAR: Regular rate and rhythm without murmurs, gallops, or rubs. RESPIRATORY: Clear to auscultation. Breath sounds equal bilaterally. No wheezes , rales, or rhonchi. GASTROINTESTINAL: Abdomen soft, non-tender, nondistended. Bowel Sounds normoactive x4. MUSCULOSKELETAL: Extremities without clubbing, cyanosis, or edema. NEUROLOGICAL: Awake and alert. No focal neuro deficit. Moves all extremities. Normal speech. Results - Labs CBC & Chem 7: 12/31/17 07:43 01/03/18 05:45 Laboratory Results - last 24 hr 01/02/18 07:12 Sodium 146 H Potassium 3.4 L Chloride 113 H Carbon Dioxide 22.5 Anion Gap 11 BUN 9 Creatinine 1.00 Estimated GFR 53 L Random Glucose 93 Calcium 7.6 L Assessment and Plan - Assessment (1) Hypotension Code(s): I95.9 - Hypotension, unspecified Status: Acute (2) Acute kidney injury Code(s): N17.9 - Acute kidney failure, unspecified Status: Acute - Plan 82-year-old elderly female admitted to inpatient psych with delusional disorder. She was transferred to medical psych unit secondary to hypotension. She got her home medication diltiazem, atenolol secondary to HTN. Both medications been given although BP recorded was 92/57. Patient's blood pressure dropped. Noted to have acute kidney failure. Acute hypotension Bradycardia -Hypotension and bradycardia are likely due to beta-scar and calcium channel scar use. -Discontinue atenolol and diltiazem altogether. -If needed for hypertension, will consider amlodipine. -We will also provide normal saline bolus as well as continuous normal saline. Acute kidney injury -Creatinine was 0.82 on 12/27/2017. Creatinine jumped to 3.12 on 12/31/2017. -1-2 L bolus normal saline given, continuous normal saline at 150 cc/hr, stopped yesterday secondary to IV infiltration. Continue IV fluids at 100ml/hr to DC tonight -If no improvement noted, will consider nephrology consultation -TELEVISION TECHNICIAN 3.12 --> 2.49 --> 1.59 -->1.0 -Avoid nephrotoxins -Improved, cont to enc PO hydration -Monitor renal indicis Poor appetite, complains of esophageal reflux -Change to lactose-free diet -Supplement Ensure clear -Pantoprazole increased to twice daily -Maalox as needed -If without improvement tomorrow consult GI for possible EGD. -Improved Delusional disorder -Continue with psychiatric care Diarrhea -stool cultures negative for Giardia, C. difficile, Cryptosporidium. -Started on loperamide -Add Lactinex twice daily -KUB ordered -IV fluids for hydration -Resolved DVT prop, ambulatory Full code Discussed with patient, nursing Discharge Planning: DC disposition by primary team
--- NOTE | 2018-01-02 16:18 | P.PNPSY ---
Subjective Chief Complaint: Becerril act Remarks: Patient was seen and case discussed with nursing. Per nursing patient has been irritable and not going to her groups. Per my interview, patient denies irritability and is quite pleasant. She is behaving well on the unit and has not had any outbursts. She is oriented x3. She denies suicidal or homicidal ideation intent or plan Mental Status Examination Appearance: Appropriate Consciousness: Alert Orientation: Person, Place (At least), Date/Time Motor Activity: Other (No abnormal motor movements noted) Speech: Unremarkable Language: Adequate Fund of Knowledge: Adequate Attention and Concentration: Adequate Memory: Impaired Mood: Appropriate Affect: Appropriate Thought Process & Associations: Disorganized Thought Content: Appropriate Hallucination Type: None Delusion Type: None (Does not verbalize any delusional material today although I suspect this is ongoing) Suicidal Ideation: No Suicidal Plan: No Suicidal Intention: No Homicidal Ideation: No Homicidal Plan: No Homicidal Intention: No Insight: Poor Judgment: Poor Assessment and Plan - Assessment (1) Delusional disorder, 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
[2018-01-03 06:23] LABS: Calcium 7.7 mg/dL (8.5-10.1); Carbon Dioxide 26.9 meq/L (21.0-32.0); Potassium 3.7 meq/L (3.5-5.1)
[2018-01-03] MEDS: ESTROGENS CONJUGATED 1.25 MG PO SCH (09:54)
[2018-01-03] MEDS: Lactobacillus Acidophilus/L. Spores Tablet PO SCH ×2 (09:54→21:37)
[2018-01-03] MEDS: Pantoprazole Sodium 20 MG DR Tablet PO SCH ×2 (09:55→21:38)
[2018-01-03] MEDS: Potassium Chloride 25 MEQ Effervescent Tablet PO SCH ×2 (09:56→21:38)
--- NOTE | 2018-01-03 12:01 | P.PN ---
Subjective Interval history: Follow-up visit hypotension, acute kidney failure, poor appetite. Patient seen and examined today. Reports she is doing well. States she started eating a lot better. States she is hydrating well. Denies pain and discomfort. Denies SOB/ dyspnea. Denies chest pain, palpitations, headaches, dizziness. Denies fevers, chills, n/v/d. Denies dysuria. Physical Exam Vital signs: Vital Signs 01/02/18 18:03 01/03/18 06:00 Temperature 98.2 F 98.9 F Pulse Rate 81 89 Respiratory Rate 18 17 Blood Pressure 138/70 156/68 H Pulse Oximetry 93 L 93 L Intake & Output 01/02/18 01/03/18 01/03/18 18:59 06:59 18:59 Intake Total 410 / 410 0 / 0 Balance 410 / 410 0 / 0 Intake: Oral 410 / 410 0 / 0 Other: # Voids 1 Date of Last Bowel Movement 12/30/17 Narrative: GENERAL: This is a well-nourished, well-developed patient, in no apparent distress. SKIN: Warm and dry. HEENT: Normocephalic. Pupils equal round and reactive. Nose without bleeding. Airway patent. NECK: Trachea midline. CARDIOVASCULAR: Regular rate and rhythm without murmurs, gallops, or rubs. RESPIRATORY: Clear to auscultation. Breath sounds equal bilaterally. No wheezes , rales, or rhonchi. GASTROINTESTINAL: Abdomen soft, non-tender, nondistended. Bowel Sounds normoactive x4. MUSCULOSKELETAL: Extremities without clubbing, cyanosis, or edema. NEUROLOGICAL: Awake and alert. No focal neuro deficit. Moves all extremities. Normal speech. Results - Labs CBC & Chem 7: 12/31/17 07:43 01/03/18 05:45 Laboratory Results - last 24 hr 01/03/18 05:45 Sodium 145 Potassium 3.7 Chloride 110 H Carbon Dioxide 26.9 Anion Gap 8 BUN 9 Creatinine 1.07 H Estimated GFR 49 L Random Glucose 98 Calcium 7.7 L Assessment and Plan - Assessment (1) Hypotension Code(s): I95.9 - Hypotension, unspecified Status: Acute (2) Acute kidney injury Code(s): N17.9 - Acute kidney failure, unspecified Status: Acute - Plan 82-year-old elderly female admitted to inpatient psych with delusional disorder. She was transferred to medical psych unit secondary to hypotension. She got her home medication diltiazem, atenolol secondary to HTN. Both medications been given although BP recorded was 92/57. Patient's blood pressure dropped. Noted to have acute kidney failure. Acute hypotension Bradycardia -Hypotension and bradycardia are likely due to beta-scar and calcium channel scar use. -Discontinue atenolol and diltiazem altogether. -If needed for hypertension, will consider amlodipine. Acute kidney injury -Creatinine was 0.82 on 12/27/2017. Creatinine jumped to 3.12 on 12/31/2017. -1-2 L bolus normal saline given, IVF given -If no improvement noted, will consider nephrology consultation -NATIONAL SALES REPRESENTATIVE 3.12 --> 2.49 --> 1.59 -->1.0 -->1.07 -Avoid nephrotoxins -Improved, cont to enc PO hydration -Monitor renal indicis Poor appetite, complains of esophageal reflux -Change to lactose-free diet -Supplement Ensure clear -Pantoprazole increased to twice daily -Maalox as needed -If without improvement tomorrow consult GI for possible EGD. -Improved Delusional disorder -Continue with psychiatric care Diarrhea -stool cultures negative for Giardia, C. difficile, Cryptosporidium. -Started on loperamide -Add Lactinex twice daily -KUB ordered -IV fluids for hydration -Resolved DVT prop, ambulatory Full code Discussed with patient, nursing Discharge Planning: DC disposition by primary team
--- NOTE | 2018-01-03 13:59 | P.PNPSY ---
Subjective Chief Complaint: Becerril act Remarks: Patient was seen and case discussed with nursing. Patient is pleasant and cooperative today. She tells me excitedly that she took a shower this morning. She is eating and sleeping well. Compliant with medications. Denies any psychotic symptoms today. However, insight remains poor concerning her admission Mental Status Examination Appearance: Appropriate Consciousness: Alert Orientation: Person, Place (At least), Date/Time Motor Activity: Other (No abnormal motor movements noted) Speech: Unremarkable Language: Adequate Fund of Knowledge: Adequate Attention and Concentration: Adequate Memory: Impaired Mood: Appropriate Affect: Appropriate Thought Process & Associations: Disorganized Thought Content: Appropriate Hallucination Type: None Delusion Type: None (Does not verbalize any delusional material today although I suspect this is ongoing) Suicidal Ideation: No Suicidal Plan: No Suicidal Intention: No Homicidal Ideation: No Homicidal Plan: No Homicidal Intention: No Insight: Poor Judgment: Poor Assessment and Plan - Assessment (1) Delusional disorder, 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
[2018-01-04] MEDS: Lactobacillus Acidophilus/L. Spores Tablet PO SCH ×2 (08:52→20:32)
[2018-01-04] MEDS: Pantoprazole Sodium 20 MG DR Tablet PO SCH ×2 (08:52→20:32)
[2018-01-04] MEDS: ESTROGENS CONJUGATED 1.25 MG PO SCH (08:52)
--- NOTE | 2018-01-04 10:28 | P.PNPSY ---
Subjective Chief Complaint: Becerril act Remarks: Patient seen and examined. Chart reviewed. Patient has been medically cleared by the hospitalist for transfer to the general psychiatric unit. Case discussed with nursing staff. Patient noted to be cooperative although she does continue to verbalize delusional material at times. On my examination today, the patient is in good spirits. She denies any hallucinations. No SI or HI voiced. She does not verbalize any delusional material today for me. Remains somewhat confused as at baseline. No physical complaints. Vital Signs Temp Pulse Resp BP Pulse Ox 01/04/18 06:28 98.3 F 71 15 145/86 H 94 L 01/03/18 18:08 98.1 F 77 15 150/80 H 95 Intake and Output 01/04/18 01/04/18 01/04/18 06:59 14:59 22:59 Intake Total 120 / 120 240 / 240 Balance 120 / 120 240 / 240 Intake: Oral 120 / 120 240 / 240 Other: # Voids 1 Weight 68 kg Labs reviewed. Review of Systems All other systems reviewed negative except as stated in HPI (Limitation: Poor historian) Mental Status Examination Appearance: Appropriate Consciousness: Alert Orientation: Person, Place Motor Activity: Other (No motor abnormalities noted) Speech: Unremarkable Language: Adequate Fund of Knowledge: Adequate Attention and Concentration: Adequate Memory: Impaired Mood: Appropriate, Good Affect: Appropriate Thought Process & Associations: Circumstantial (In setting of dementia) Thought Content: Appropriate Hallucination Type: None Delusion Type: None (None verbalized but suspect ongoing underlying grandiosity) Suicidal Ideation: No Homicidal Ideation: No Insight: Poor Judgment: Poor Assessment and Plan - Assessment (1) Delusional disorder, 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 However, given patient's current presentation and our goal for placement in structured living facility, I believe that risk-benefit profile at this point favors holding off on re-initiating antipsychotic. Instead, these delusions might be managed by non-pharmacologic means both here and by receiving facility. Hospitalist input noted and appreciated. I will check a BMP and CBC in the morning to follow-up on decreased GFR and leukocytosis, respectively. Continue other medications and care as ordered. Justification for Continued Inpatient Stay: Risk for decompensation in less restrictive environment. Discharge Planning: Placement. Case discussed with counselor. Request Healthcare Surrogate/Guardian Advocate?: Yes
[2018-01-05 07:26] LABS: Baso # (Auto) 0.1 th/mm3 (0.0-0.2); Baso % (Auto) 0.6 % (0.0-2.0); Eos # (Auto) 0.3 th/mm3 (0.0-0.4); Eos % (Auto) 3.7 % (0.0-4.0); Hematocrit 34.9 % (35.0-46.0); Hemoglobin 12.1 gm/dL (11.6-15.3); Lymph % (Auto) 34.4 % (9.0-44.0); Mean Corpuscular HGB Conc 34.8 % (32.0-36.0); Mean Corpuscular Volume 86.2 fL (80.0-100.0); Mean Platelet Volume 9.6 fL (7.0-11.0); Mono # (Auto) 0.8 th/mm3 (0.0-0.9); Mono % (Auto) 9.4 % (0.0-8.0); Neut # (Auto) 4.6 th/mm3 (1.8-7.7); Neut % (Auto) 51.9 % (16.0-70.0); Platelet Count 190 th/mm3 (150-450); Red Blood Count 4.05 mil/mm3 (4.00-5.30); Red Cell Distribution Width 13.1 % (11.6-17.2); White Blood Count 8.8 th/mm3 (4.0-11.0)
[2018-01-05 07:49] LABS: Calcium 8.6 mg/dL (8.5-10.1); Carbon Dioxide 26.8 meq/L (21.0-32.0); Potassium 3.6 meq/L (3.5-5.1)
[2018-01-05] MEDS: Pantoprazole Sodium 20 MG DR Tablet PO SCH ×2 (08:17→20:41)
[2018-01-05] MEDS: Lactobacillus Acidophilus/L. Spores Tablet PO SCH ×2 (08:17→20:41)
[2018-01-05] MEDS: Acetaminophen 325 MG Tablet PO PRN (08:45)
[2018-01-05] MEDS: ESTROGENS CONJUGATED 1.25 MG PO SCH (09:35)
--- NOTE | 2018-01-05 09:48 | P.PNPSY ---
Subjective Chief Complaint: Becerril act Remarks: Reviewed electronic medical records and discussed case with staff. Follow-up was conducted in the patient's room with JANE Menendez present. Patient's creatinine had been up slightly to 1.08. However, her BUN remains within normal limits and her electrolytes as well. Counseled the patient to increase her oral fluid intake. She is found lying on her bed awake, alert, and oriented. She states that her mood is good and her affect is euthymic. When asked about her moved to this area she states that she used to live here and "just wanted to come back". Mental Status Examination Appearance: Appropriate Consciousness: Alert Orientation: Person, Place Motor Activity: Other (No motor abnormalities noted) Speech: Unremarkable Language: Adequate Fund of Knowledge: Adequate Attention and Concentration: Adequate Memory: Impaired Mood: Appropriate, Good Affect: Appropriate Thought Process & Associations: Circumstantial (In setting of dementia) Thought Content: Appropriate Hallucination Type: None Delusion Type: None (None verbalized but suspect ongoing underlying grandiosity) Suicidal Ideation: No Suicidal Plan: No Suicidal Intention: No Homicidal Ideation: No Homicidal Plan: No Homicidal Intention: No Insight: Poor Judgment: Poor Assessment and Plan - Assessment (1) Delusional disorder, 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 Continue with current treatment plan. Justification for Continued Inpatient Stay: Moving this patient to a less restrictive environment would likely result in decompensation. Request Healthcare Surrogate/Guardian Advocate?: Yes
[2018-01-06] MEDS: Acetaminophen 325 MG Tablet PO PRN (02:06)
[2018-01-06] MEDS: Pantoprazole Sodium 20 MG DR Tablet PO SCH ×2 (09:02→21:12)
[2018-01-06] MEDS: Lactobacillus Acidophilus/L. Spores Tablet PO SCH ×2 (09:02→21:12)
[2018-01-06] MEDS: ESTROGENS CONJUGATED 1.25 MG PO SCH (09:02)
--- NOTE | 2018-01-06 12:09 | P.PNPSY ---
Subjective Chief Complaint: Becerril act Remarks: Patient seen and examined with nurse. Chart reviewed. Case discussed with nursing staff. Case discussed with counselor who reports that patient is resistant to efforts at placement. On my examination today, the patient says that she has been "feeling real good" and is comfortable on the inpatient unit. She denies any SI or HI. Denies any AVH. She does not verbalize any delusional material during my evaluation, although nursing staff reports that this is ongoing. No medication side effects or physical complaints. Vital Signs Temp Pulse Resp BP Pulse Ox 01/06/18 06:36 98.2 F 87 18 138/95 H 94 L 01/05/18 18:27 98.3 F 99 H 18 129/78 95 Intake and Output 01/05/18 01/06/18 01/06/18 22:59 06:59 14:59 Intake Total 1560 / 1560 Balance 1560 / 1560 Intake: Oral 1560 / 1560 Other: # Voids 3 Date of Last Bowel Movement 12/30/17 Labs reviewed. No new labs. Review of Systems All other systems reviewed negative except as stated in HPI (Limitation: Poor historian) Mental Status Examination Appearance: Appropriate Consciousness: Alert Orientation: Person, Place Motor Activity: Other (No abnormal motor movements noted) Speech: Unremarkable Language: Adequate Fund of Knowledge: Adequate Attention and Concentration: Adequate Memory: Impaired Mood: Appropriate Affect: Appropriate, Euthymic Thought Process & Associations: Circumstantial (In setting of dementia) Thought Content: Appropriate Hallucination Type: None Delusion Type: Other (Suspect underlying grandiosity) Suicidal Ideation: No Suicidal Plan: No Suicidal Intention: No Homicidal Ideation: No Homicidal Plan: No Homicidal Intention: No Insight: Poor Judgment: Poor Assessment and Plan - Assessment (1) Delusional disorder, 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 she does not believe she is in need of placement because she is still of the belief that she has won a house). Consequently, at this juncture, I believe resumption of antipsychotic therapy is indicated. I will resume very low dose Risperdal 0.25mg BID with plans to monitor closely for side effects and titrate to effect and as tolerated. Consent already obtained from patient' s healthcare surrogate. Continue to monitor on the inpatient unit. Continue other medications and care as ordered. Justification for Continued Inpatient Stay: Impairment in reality construction. Risk for decompensation in less restrictive environment. Medication changes. Discharge Planning: Placement Request Healthcare Surrogate/Guardian Advocate?: Yes
[2018-01-07] MEDS: Lactobacillus Acidophilus/L. Spores Tablet PO SCH ×2 (09:38→20:43)
[2018-01-07] MEDS: Pantoprazole Sodium 20 MG DR Tablet PO SCH ×2 (09:40→20:43)
[2018-01-07] MEDS: ESTROGENS CONJUGATED 1.25 MG PO SCH (09:40)
--- NOTE | 2018-01-07 12:25 | P.PNPSY ---
Subjective Chief Complaint: Becerril act Remarks: Patient seen and examined. Chart reviewed. Case discussed with nursing staff. Case discussed with counselor who reports that patient has expressed opposition to any sort of placement, and this is presenting a barrier to successful placement of the patient. On my examination today, the patient insists that she has spoken with her son, Grant, and has been told that she can go to stay with him. Counselor has himself spoken with Grant and indicates that this is not the case. Patient remained somewhat confused as at recent baseline. No side effects from medications. No physical complaints. Vital Signs Temp Pulse Resp BP Pulse Ox 01/07/18 04:00 98.2 F 73 18 148/71 H 94 L Intake and Output 01/06/18 01/07/18 01/07/18 22:59 06:59 14:59 Intake Total 1560 / 1560 0 / 0 840 / 840 Balance 1560 / 1560 0 / 0 840 / 840 Intake: Oral 1560 / 1560 0 / 0 840 / 840 Oral Supplement 0 / 0 Other: # Voids 2 # Bowel Movements 0 Labs reviewed. No new labs. Review of Systems All other systems reviewed negative except as stated in HPI Mental Status Examination Appearance: Appropriate Consciousness: Alert Orientation: Person, Place Motor Activity: Other (No motoric abnormalities noted) Speech: Unremarkable Language: Adequate Fund of Knowledge: Adequate Attention and Concentration: Adequate Memory: Impaired Mood: Appropriate, Oppositional (Mild) Affect: Appropriate, Euthymic Thought Process & Associations: Circumstantial (In setting of dementia) Thought Content: Appropriate Hallucination Type: None Delusion Type: Other (Suspect underlying grandiosity) Suicidal Ideation: No Homicidal Ideation: No Insight: Poor Judgment: Poor Assessment and Plan - Assessment (1) Delusional disorder, 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 To consider further titration of this agent to target suspected ongoing delusions. Continue to monitor on the inpatient unit. Continue other medications and care as ordered. Justification for Continued Inpatient Stay: Risk for decompensation in less restrictive environment. Impairment in reality construction. Discharge Planning: Counselor will continue to work on placement for this patient. Request Healthcare Surrogate/Guardian Advocate?: Yes
[2018-01-08] MEDS: Lactobacillus Acidophilus/L. Spores Tablet PO SCH ×2 (08:55→21:16)
[2018-01-08] MEDS: ESTROGENS CONJUGATED 1.25 MG PO SCH (08:55)
[2018-01-08] MEDS: Pantoprazole Sodium 20 MG DR Tablet PO SCH ×2 (08:55→21:16)
--- NOTE | 2018-01-08 11:49 | P.PNPSY ---
Subjective Chief Complaint: Becerril act Remarks: Patient seen and examined with nurse. Chart reviewed. Case discussed with nursing staff. Case discussed in treatment team. Counselor reiterates that family cannot provide support or housing for patient and placement is necessary. On my exam, the patient remains resistant to any sort of placement. She says that she might try to get a condominium to live on her own, but she cannot explain the mechanics of how she would go about purchasing property and finally simply says "I don't know." She remains calm and cooperative if somewhat confused. Denies side effects from medications. No physical complaints. Vital Signs Temp Pulse Resp BP Pulse Ox 01/08/18 05:23 98 F 84 16 121/71 96 01/07/18 19:01 98.1 F 95 H 18 164/92 H 95 Intake and Output 01/07/18 01/08/18 01/08/18 22:59 06:59 14:59 Intake Total 1340 / 1340 340 / 340 Balance 1340 / 1340 340 / 340 Intake: Oral 1340 / 1340 240 / 240 Oral Supplement 100 / 100 Other: # Voids 4 2 # Bowel Movements 0 Labs reviewed. No new labs. Review of Systems All other systems reviewed negative except as stated in HPI Mental Status Examination Appearance: Appropriate Consciousness: Alert Orientation: Person, Place Motor Activity: Other (No abnormal motor movements noted) Speech: Unremarkable Language: Adequate Fund of Knowledge: Adequate Attention and Concentration: Adequate Memory: Impaired Mood: Appropriate Affect: Appropriate, Euthymic Thought Process & Associations: Circumstantial (In setting of dementia) Thought Content: Appropriate Hallucination Type: None Delusion Type: Other (Continue to suspect underlying grandiose delusions) Suicidal Ideation: No Homicidal Ideation: No Insight: Poor Judgment: Poor Assessment and Plan - Assessment (1) Delusional disorder, 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 Continue to monitor on the inpatient unit. Continue other medications and care as ordered. Justification for Continued Inpatient Stay: Risk for decompensation in less restrictive environment. Medication changes. Discharge Planning: Placement. Request Healthcare Surrogate/Guardian Advocate?: Yes
--- NOTE | 2018-01-08 12:29 | P.TTN ---
- Patient Problems Problems: 1. Discharge planning 2. Medication compliance 3. Knowledge deficit 4. Lack of coping skills - Progress Toward Goals Provider Present: Dr. Johnny Lambert Provider Input: Patient currently not receiving medication, has history of bizarre delusions, neuropsychological consult requested and OT evaluation. 12/29: Still meets criteria. : pt continues to maintain her delusional thoughts, she has refused consideration for admission to x 1 facility during an interview process. Family is unable to assist with pt placement. Plan is to continue to seek placement as pt is unable to live independently. Nurse(s) Present: Shaunna Nurse Input: Fixed delusions about winning the "[employer] [employer] Prize". Sleeps well 6 to 7 hours nightly. Appropriate with staff. Treatment cooperative. Med compliant. Psychiatric Counselors Present: Chaz Martinez Jr., [facility], Other Psychiatric Therapist Input: 01/08/18: Counselor to continue to seek appropriate placement. Karlene- patient new admission and new to this counselor Group Spec/RT/OT/DYSON Present: Radha Brothers, GPS, Tana Allen DYSON, Milind Colmenares, OT, Wayne Pleitez, DYSON Group Spec/RT/OT/DYSON Input: 01/09/18: pt has rarely been attending groups. Pt tends to isolate to her room. Pt needs alot of encouragement to participate in the group activities. Presents with a somber mood. Occupational Therapist Input: 01/09/18: pt has been assessed by this OTR; pt is able to independently complete self care and ADLS, she remains at risk per her fixed delusions (per MD and per this OTR). OT eval requested - Discharge Plan Pt continues to demonstrate psychotic thinking that places her at risk in an independent setting, POC is to find this pt a safe placement option. - Documentation Teaching Recipient: Patient
--- NOTE | 2018-01-09 12:39 | P.PNPSY ---
Subjective Chief Complaint: Becerrli act Remarks: Reviewed electronic medical records and discussed case with staff. Follow-up was conducted in patient's room. She was found lying in her bed sleeping. She reports that she has been sleeping well and that her appetite is been getting better. She reports that her mood is good. She claims that her family is looking for a place for her to live which I do not believe is accurate. When I asked what kind of place and mentioned in assisted living facility she immediately became resistant stating, "I won't even discuss it". Mental Status Examination Appearance: Appropriate Consciousness: Alert Orientation: Person, Place Motor Activity: Other (No abnormal motor movements noted) Speech: Unremarkable Language: Adequate Fund of Knowledge: Adequate Attention and Concentration: Adequate Memory: Impaired Mood: Appropriate Affect: Appropriate, Euthymic Thought Process & Associations: Circumstantial (In setting of dementia) Thought Content: Appropriate Hallucination Type: None Delusion Type: Other (Continue to suspect underlying grandiose delusions) Suicidal Ideation: No Suicidal Plan: No Suicidal Intention: No Homicidal Ideation: No Homicidal Plan: No Homicidal Intention: No Insight: Poor Judgment: Poor Assessment and Plan - Assessment (1) Delusional disorder, 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 Continue with current treatment plan. Justification for Continued Inpatient Stay: Moving this patient to a less restrictive environment would likely result in decompensation. Request Healthcare Surrogate/Guardian Advocate?: Yes
[2018-01-09] MEDS: ESTROGENS CONJUGATED 1.25 MG PO SCH (12:55)
[2018-01-09] MEDS: Lactobacillus Acidophilus/L. Spores Tablet PO SCH ×2 (12:55→20:54)
[2018-01-09] MEDS: Pantoprazole Sodium 20 MG DR Tablet PO SCH ×2 (12:55→20:54)
[2018-01-10] MEDS: ESTROGENS CONJUGATED 1.25 MG PO SCH (10:10)
[2018-01-10] MEDS: Aluminum/Magnesium/Simethacone Susp 30 ML UDC PO PRN (10:10)
[2018-01-10] MEDS: Pantoprazole Sodium 20 MG DR Tablet PO SCH ×2 (10:11→22:18)
[2018-01-10] MEDS: Lactobacillus Acidophilus/L. Spores Tablet PO SCH ×2 (10:11→22:18)
--- NOTE | 2018-01-10 11:05 | P.PNPSY ---
Subjective Chief Complaint: Becerril act Remarks: Reviewed electronic medical records and discussed case with staff. Follow-up was conducted in the patient's room. She was found lying in her bed. States that she slept good her appetite's been good and reports that she has been in a good mood. When asked about how she came to be in [place] she begins confabulating. She claims that her son bought her house then alternately that he is building her house. When pressed she states "I do not want to tell the story again because nobody believes me anyway". Patient is quite pleasant and her interactions until her delusion is challenged in any way or mention of a cyst placement comes up into the conversation. At that point she irritable. Mental Status Examination Appearance: Appropriate Consciousness: Alert Orientation: Person, Place Motor Activity: Other (No abnormal motor movements noted) Speech: Unremarkable Language: Adequate Fund of Knowledge: Adequate Attention and Concentration: Adequate Memory: Impaired Mood: Appropriate Affect: Appropriate, Euthymic Thought Process & Associations: Circumstantial (In setting of dementia) Thought Content: Appropriate Hallucination Type: None Delusion Type: Other (Continue to suspect underlying grandiose delusions) Suicidal Ideation: No Suicidal Plan: No Suicidal Intention: No Homicidal Ideation: No Homicidal Plan: No Homicidal Intention: No Insight: Poor Judgment: Poor Assessment and Plan - Assessment (1) Delusional disorder, 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 Continue with current treatment plan. Justification for Continued Inpatient Stay: Moving this patient to a less restrictive environment would likely result in decompensation. Request Healthcare Surrogate/Guardian Advocate?: Yes
[2018-01-11] MEDS: ESTROGENS CONJUGATED 1.25 MG PO SCH (09:30)
[2018-01-11] MEDS: Pantoprazole Sodium 20 MG DR Tablet PO SCH ×2 (09:30→20:41)
[2018-01-11] MEDS: Lactobacillus Acidophilus/L. Spores Tablet PO SCH ×2 (09:30→20:41)
--- NOTE | 2018-01-11 12:33 | P.PNPSY ---
Subjective Chief Complaint: Becerril act Remarks: Patient seen and examined with nurse. Chart reviewed. Case discussed with nursing staff. On my examination today, the patient presents as somewhat confused as at recent baseline. Her speech is a little bit rambling and she repeats material that she has shared previously. She remains resistant to any sort of placement. No side effects from medications. Complains of some mild chronic neck pain, says that she usually takes Tylenol for this. No other physical complaints. Vital Signs Temp Pulse Resp BP Pulse Ox 01/11/18 06:12 98.5 F 90 16 146/63 H 94 L 01/10/18 18:12 98.1 F 90 18 134/90 94 L Intake and Output 01/10/18 01/11/18 01/11/18 22:59 06:59 14:59 Intake Total 1080 / 1080 Balance 1080 / 1080 Intake: Oral 1080 / 1080 Oral Supplement 0 / 0 Other: # Voids 3 2 Date of Last Bowel Movement 12/30/17 12/30/17 Weight 63.4 kg Labs reviewed. No new labs. Review of Systems All other systems reviewed negative except as stated in HPI Mental Status Examination Appearance: Appropriate Consciousness: Alert Orientation: Person, Place Motor Activity: Other (No motor abnormalities noted) Speech: Unremarkable Language: Adequate (Somewhat rambling) Fund of Knowledge: Adequate Attention and Concentration: Adequate Memory: Impaired Mood: Appropriate Affect: Appropriate, Euthymic Thought Process & Associations: Circumstantial (In setting of dementia) Thought Content: Appropriate Hallucination Type: None Delusion Type: Other (Continue to suspect underlying grandiose delusions) Suicidal Ideation: No Homicidal Ideation: No Insight: Poor Judgment: Poor Assessment and Plan - Assessment (1) Delusional disorder, 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 Could consider further titration of this agent if needed. Continue to monitor on the inpatient unit. Will recheck BMP to follow-up renal function. Continue other medications and care as ordered. Justification for Continued Inpatient Stay: High risk for decompensation in less restrictive environment. Discharge Planning: Placement Request Healthcare Surrogate/Guardian Advocate?: Yes
[2018-01-11] MEDS: Acetaminophen 325 MG Tablet PO PRN (12:43)
[2018-01-11 15:44] LABS: Calcium 8.7 mg/dL (8.5-10.1); Carbon Dioxide 23.5 meq/L (21.0-32.0); Potassium 3.8 meq/L (3.5-5.1)
[2018-01-12] MEDS: ESTROGENS CONJUGATED 1.25 MG PO SCH (09:05)
[2018-01-12] MEDS: Lactobacillus Acidophilus/L. Spores Tablet PO SCH ×2 (09:05→20:46)
[2018-01-12] MEDS: Pantoprazole Sodium 20 MG DR Tablet PO SCH ×2 (09:05→20:46)
--- NOTE | 2018-01-12 11:38 | P.PNPSY ---
Subjective Chief Complaint: Becerril act Remarks: Reviewed electronic medical records and discussed case with staff. Follow-up was conducted in the patient's room. Patient found sitting in a chair. She states that she slept well her appetite is improving and rates her mood as good. She denies any side effects from medication. Staff reports that her delusion remains firmly in place. Mental Status Examination Appearance: Appropriate Consciousness: Alert Orientation: Person, Place Motor Activity: Other (No motor abnormalities noted) Speech: Unremarkable Language: Adequate (Somewhat rambling) Fund of Knowledge: Adequate Attention and Concentration: Adequate Memory: Impaired Mood: Appropriate Affect: Appropriate, Euthymic Thought Process & Associations: Circumstantial (In setting of dementia) Thought Content: Appropriate Hallucination Type: None Delusion Type: Other (Continue to suspect underlying grandiose delusions) Suicidal Ideation: No Suicidal Plan: No Suicidal Intention: No Homicidal Ideation: No Homicidal Plan: No Homicidal Intention: No Insight: Poor Judgment: Poor Assessment and Plan - Assessment (1) Delusional disorder, 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 Continue with current treatment plan. Justification for Continued Inpatient Stay: Moving this patient to a less restrictive environment would likely result in decompensation. Request Healthcare Surrogate/Guardian Advocate?: Yes
[2018-01-12] MEDS: Acetaminophen 325 MG Tablet PO PRN (21:04)
[2018-01-13] MEDS: Lactobacillus Acidophilus/L. Spores Tablet PO SCH ×2 (08:53→21:10)
[2018-01-13] MEDS: ESTROGENS CONJUGATED 1.25 MG PO SCH (08:53)
[2018-01-13] MEDS: Pantoprazole Sodium 20 MG DR Tablet PO SCH ×2 (08:53→21:10)
[2018-01-13] MEDS: Aluminum/Magnesium/Simethacone Susp 30 ML UDC PO PRN (08:55)
--- NOTE | 2018-01-13 12:01 | P.PNPSY ---
Subjective Chief Complaint: Becerril act Remarks: Patient seen in her room with nurse less, patient sitting in chair reading a book. She is calm and pleasant with me. States she is not eating breakfast or lunch because coffee was spilled on her tray. She is aware that we will be [place] court hearing tomorrow that appears to be her rehearing. Patient's delusional ideation remains unchanged. Patient compliant medication Review of Systems All other systems reviewed negative except as stated in HPI Mental Status Examination Appearance: Appropriate Consciousness: Alert Orientation: Person, Place Motor Activity: Other (No motor abnormalities noted) Speech: Unremarkable Language: Adequate (Somewhat rambling) Fund of Knowledge: Adequate Attention and Concentration: Adequate Memory: Impaired Mood: Appropriate Affect: Appropriate, Euthymic Thought Process & Associations: Circumstantial (In setting of dementia) Thought Content: Appropriate Hallucination Type: None Delusion Type: Other (Continue to suspect underlying grandiose delusions) Suicidal Ideation: No Suicidal Plan: No Suicidal Intention: No Homicidal Ideation: No Homicidal Plan: No Homicidal Intention: No Insight: Poor Judgment: Poor Assessment and Plan - Assessment (1) Delusional disorder, 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 type Code(s): F22 - Delusional disorders Status: Acute (2) Major neurocognitive disorder due to Alzheimer's disease, probable, with behavioral disturbance Code(s): G30.9 - Alzheimer's disease, unspecified; F02.81 - Dementia in other diseases classified elsewhere with behavioral disturbance Status: Acute - Plan Plan: Patient remains delusional though no behavior problems, compliant medication, patient scheduled for [place] court tomorrow Justification for Continued Inpatient Stay: At this time patient would decompensate a place to a lower level of care Discharge Planning: To be determined Request Healthcare Surrogate/Guardian Advocate?: Yes
[2018-01-13] MEDS: Acetaminophen 325 MG Tablet PO PRN (17:21)
[2018-01-14 05:21] VITALS: BP 136/76; PULSE 75; RESP 16; TEMP 98.3; O2SAT 93
[2018-01-14] MEDS: ESTROGENS CONJUGATED 1.25 MG PO SCH (08:42)
[2018-01-14] MEDS: Pantoprazole Sodium 20 MG DR Tablet PO SCH (08:42)
[2018-01-14] MEDS: Lactobacillus Acidophilus/L. Spores Tablet PO SCH (08:42)
--- NOTE | 2018-01-14 11:41 | P.DSPSY ---
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 Gresham is an 82-year-old female with no reported past psychiatric history besides a childhood history of dyslexia who presents under a Becerril act by law enforcement alleging that the patient believed that she had won the [place] prize and was given a house in [place]. She was apparently trying to get into someone else's house. Patient was evaluated by the psychiatric nurse practitioner in the emergency department who obtained collateral information from the patient's son indicating that the patient had a previous episode of psychiatric disturbance several years ago. Reviewing our electronic medical record, I see no previous psychiatric contact within our system. Patient seen and examined with nurse. Chart reviewed. Case discussed with nursing staff. On my examination today, the patient is calm and cooperative. She is superficially clear thinking but presents with a loculated grandiosity. When I ask her about previous presidents as part of mental status testing she tells me offhandedly that she has spoken with both Jake and Shannan Ortega in the past. She also tells me that she won the [place] peace prize for pioneering a new approach to pancreatic surgery. She says that she won this four years ago. She blandly denies the allegations in the Becerril act. She is fairly discursive and verbose, but her speech is not rapid or pressured. No reported sleep disturbance although her appetite is reportedly somewhat poor. She denies any subjective mood disturbance. She denies any suicidal or homicidal ideation. Besides the grandiose delusions, I can elicit no other delusional material. The remainder of the psychiatric ROS is negative. No acute physical complaints. Tobacco Use In Past 30 Days: No How Often Do You Have a Drink Containing Alcohol: Monthly or less Hospital Course: Patient was admitted to a locked, inpatient psychiatric unit. A general medical consultation was obtained. A neuropsychological evaluation was obtained. Appropriate precautions were in place throughout patient's hospital stay. Patient was seen and examined on the unit by psychiatry and also visited by counselor. Psychotropic medications were adjusted. There was no evidence of any suicidality or homicidality on the inpatient unit. Although the patient was able to complete ADL assessment administered by occupational therapy, grave concerns remain about the patient's poor judgment, particularly given the circumstances of her presentation here. Collateral information was obtained from the patient's sons. Patient's case was presented to the Becerril act court today and the private duty rn has ordered the patient's discharge as per the patient's request. On my evaluation on the day of discharge the patient denies any suicidal or homicidal ideation. She denies any hallucinations. She now says that she was told that she had won the [place] prize by her son. Denies side effects from medications. No physical complaints. As noted above, I am gravely concerned that the patient exhibits poor judgment as a consequence both of her psychotic illness and her probable dementing illness. I fear that she may come to some harm in a less restrictive setting and have strongly recommended that she allow us to place her. However, the patient has refused any sort of placement and is refusing voluntary hospitalization going forward. Having no basis to retain the patient over her objection at this point, I will discharge her AGAINST MEDICAL ADVICE. Psychiatric follow-up as arranged by counselor. Patient is also to follow up with primary care. I have counseled the patient to return to the psychiatric emergency room for any concerning symptoms as part of a general safety plan. 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 Diagnosis: Principal Code(s): F22 - Delusional disorders Status: Acute (2) Major neurocognitive disorder due to Alzheimer's disease, probable, with behavioral disturbance Diagnosis: Secondary Code(s): G30.9 - Alzheimer's disease, unspecified; F02.81 - Dementia in other diseases classified elsewhere with behavioral disturbance Status: Acute Discharge Disposition: AMA - Discharge Instructions Discharge Diet: Regular Diet Activities You Can Perform: Weight Bearing As Tolerat - Discharge Time > 30 minutes Mental Status Examination Appearance: Appropriate Consciousness: Alert Orientation: Person, Place Motor Activity: Other (No abnormal motor movements noted) Speech: Unremarkable Language: Adequate (Remains a little rambling) Fund of Knowledge: Adequate Attention and Concentration: Adequate Memory: Impaired Mood: Appropriate Affect: Appropriate, Euthymic Thought Process & Associations: Circumstantial (In setting of dementia) Thought Content: Appropriate Hallucination Type: None Delusion Type: Other (Grandiose delusions) Suicidal Ideation: No Suicidal Plan: No Suicidal Intention: No Homicidal Ideation: No Homicidal Plan: No Homicidal Intention: No Insight: Poor Judgment: Poor Discharge/Advance Care Plan - Results Vital Signs: Last Vital Signs Temp 98.3 F 01/14/18 05:20 Pulse 75 01/14/18 05:20 Resp 16 01/14/18 10:38 BP 136/76 01/14/18 05:20 Pulse Ox 93 L 01/14/18 05:20 Lab Results: Laboratory Results Hemoglobin A1c 6.0 % (4.3-6.0) 12/24/17 06:10 Triglycerides 131 mg/dL (42-150) 12/24/17 06:10 Cholesterol 140 mg/dL (120-200) 12/24/17 06:10 LDL Cholesterol, Calc 56 mg/dL (0-99) 12/24/17 06:10 HDL Cholesterol 57.7 mg/dL (40.0-60.0) 12/24/17 06:10 TSH 3.450 uIU/mL (0.358-3.740) 12/24/17 06:10 Free T4 1.15 ng/dL (0.76-1.46) 12/24/17 06:10 Urine Culture Comments Culture indicated 12/23/17 14:47 Summary of Procedures: None done Imaging: ITS Impressions Head CT 12/25/17 00:00 CONCLUSION: 1. No acute intracranial abnormalities. . Abdomen X-Ray 12/30/17 00:00 CONCLUSION: No dilated loops of small or large bowel. Possible gallstones. Chest X-Ray 12/31/17 00:00 CONCLUSION: No active disease. Pending Results: None - Medications Number of antipsychotic medications at discharge: 1 - Discharge Care Plan Goals to Promote Your Health: * To prevent worsening of your condition and complications * To maintain your health at the optimal level Directions to Meet Your Goals: Take your medications as prescribed Follow your dietary instruction Follow activity as directed Keep your appointments as scheduled Take your immunizations and boosters as scheduled If your symptoms worsen call your PCP, if no PCP go to Urgent Care Center or Emergency Room For 27/10 questions related to your inpatient stay or results of tests pending at discharge, please contact Dr. Barak Lambert MD at [phone] Smoking is Dangerous to Your Health. Avoid second hand smoking
== END 2018-01-14 15:20 | disposition left against medical advice (07) ==
LOC: NEPD 12:46 → NEDA 12-23 14:08 → H250 12-23 17:13 → H4EA 12-30 16:48 → H250 01-04 13:02
PROVIDERS: ADMIT Psychiatry & Neurology Psychiatry; ATTEND Psychiatry & Neurology Psychiatry